=== PATIENT | female | born 1945 | race Caucasian/White ===

== ENCOUNTER 2018-09-11 09:06 | Inpatient (IN) | payer MEDICARE, OTHER ==
[2018-09-11] MEDS ORDERED: FUROSEMIDE 10 MG/ML 4 ML VIAL IV STA (10:15)
[2018-09-11] MEDS ORDERED: FUROSEMIDE 10 MG/ML 4 ML VIAL ONE (10:50)
[2018-09-11 11:03] LABS: Glucose,Whole Blood 265 mg/dL (75-99)
[2018-09-11] MEDS ORDERED: SODIUM CHLORIDE 0.9% 1,000 ML IV SCH ×4 (11:15→13:00)
[2018-09-11] MEDS ORDERED: CLINDAMYCIN 900 MG in DEXTROSE 5% IN WATER 50 ML IVPB ONE ×4 (11:15→12:58)
[2018-09-11] MEDS ORDERED: CLINDAMYCIN 600 MG in SODIUM CHLORIDE 0.9% IRRIGATIO 250 ML IRRIGATION ONE (11:15)
[2018-09-11] MEDS ORDERED: ACETAMINOPHEN TAB 325 MG TAB PO PRN (15:18)
[2018-09-11] MEDS ORDERED: ACETAMINOPHEN TAB 325 MG TAB ONE (15:23)
[2018-09-11] MEDS: IPRATROPIUM 0.5 MG/2.5 ML NEBU INHALATION SCH ×2 (16:55→20:19)
[2018-09-11] MEDS ORDERED: INSULIN ASPART 100 UNIT/ML 1 ML 10 ML VIAL SQ SCH (17:30)
[2018-09-11 17:40] LABS: Glucose,Whole Blood 382 mg/dL (75-99)
[2018-09-11 18:32] VITALS: BMI 53.4
[2018-09-11] MEDS ORDERED: FUROSEMIDE 40 MG TAB PO STA (19:02)
[2018-09-11] MEDS: ATORVASTATIN 10 MG TAB PO SCH (19:57)
[2018-09-11] MEDS: METOPROLOL TARTRATE 50 MG TAB PO SCH (19:57)
[2018-09-11] MEDS: PREGABALIN 75 MG CAP PO SCH (19:57)
[2018-09-11] MEDS: HEPARIN SODIUM,PORCINE 5,000 UNIT/ML 1 ML VIAL SQ SCH (19:57)
[2018-09-11] MEDS: FAMOTIDINE 20 MG TAB PO SCH (19:57)
[2018-09-11] MEDS: MONTELUKAST 10 MG TAB PO SCH (19:57)
[2018-09-11] MEDS ORDERED: SODIUM CHLORIDE 0.9% 500 ML 500 ML IV SCH (20:00)
[2018-09-11 21:01] LABS: Glucose,Whole Blood 300 mg/dL (75-99)
[2018-09-11] MEDS: INSULIN ASPART 100 UNIT/ML 1 ML 10 ML VIAL SQ SCH (21:28)
[2018-09-12] MEDS ORDERED: FUROSEMIDE 10 MG/ML 4 ML VIAL IV STA (00:04)
--- NOTE | 2018-09-12 00:24 | XR ---
EXAMINATION TYPE: XR chest 1V portable DATE OF EXAM: 09/12/2018 COMPARISON: 03/04/2012 HISTORY: Difficulty breathing TECHNIQUE: Single frontal view of the chest is obtained. FINDINGS: There is no heart failure. There is possible infiltrate in the right lower lobe seen over the right cardiac border. There are chest leads. There are sternal wires. The bony thorax is intact. IMPRESSION: No heart failure. Possible right lower lobe infiltrate.
[2018-09-12 05:51] LABS: Glucose,Whole Blood 109 mg/dL (75-99)
[2018-09-12] MEDS: INSULIN ASPART 100 UNIT/ML 1 ML 10 ML VIAL SQ SCH ×4 (06:08→21:18)
[2018-09-12 07:03] LABS: Basophils % (A) 0 %; Eosinophils # (A) 0.1 k/uL (0-0.7); Eosinophils % (A) 1 %; HCT 35.1 % (34.0-46.0); HGB 11.4 gm/dL (11.4-16.0); Lymphocytes # (A) 1.2 k/uL (1.0-4.8); Lymphocytes % (A) 11 %; MCH 30.3 pg (25.0-35.0); MCHC 32.6 g/dL (31.0-37.0); Mean Platelet Volume 7.4; Monocytes # (A) 0.8 k/uL (0-1.0); Monocytes % (A) 6 %; Neutrophils # (A) 9.4 k/uL (1.3-7.7); Neutrophils % (A) 80 %; Platelet Count 177 k/uL (150-450); RBC 3.78 m/uL (3.80-5.40); RDW 14.6 % (11.5-15.5); WBC 11.8 k/uL (3.8-10.6)
[2018-09-12 07:18] LABS: Calcium 8.7 mg/dL (8.4-10.2); Potassium 4.2 mmol/L (3.5-5.1)
[2018-09-12] MEDS ORDERED: CIPROFLOXACIN HCL 250 MG TAB PO STA (08:16)
[2018-09-12] MEDS: IPRATROPIUM 0.5 MG/2.5 ML NEBU INHALATION SCH ×2 (08:21→20:09)
[2018-09-12] MEDS ORDERED: FUROSEMIDE 40 MG TAB PO SCH (09:00)
[2018-09-12] MEDS ORDERED: FUROSEMIDE 20 MG TAB PO SCH (09:00)
[2018-09-12] MEDS: HEPARIN SODIUM,PORCINE 5,000 UNIT/ML 1 ML VIAL SQ SCH ×2 (09:18→20:55)
[2018-09-12] MEDS: LEVOTHYROXINE 125 MCG TAB PO SCH (09:23)
[2018-09-12] MEDS: PREGABALIN 75 MG CAP PO SCH ×2 (09:24→20:56)
[2018-09-12] MEDS: FAMOTIDINE 20 MG TAB PO SCH (09:24)
[2018-09-12] MEDS: METOPROLOL TARTRATE 50 MG TAB PO SCH ×2 (09:24→23:41)
[2018-09-12] MEDS: buPROPion 75 MG TAB PO SCH (09:29)
[2018-09-12] MEDS: FUROSEMIDE 10 MG/ML 4 ML VIAL IV SCH ×2 (09:32→20:55)
[2018-09-12 12:09] LABS: Glucose,Whole Blood 171 mg/dL (75-99)
--- NOTE | 2018-09-12 14:16 | P.HPIM ---
History of Present Illness Niesha Gonzalez a 72 y.o.femalewith a known history of Coronary artery disease status post CABG and valve repair, asthma/COPD, hypothyroidism, history of CVA/TIA, obstructive sleep apnea on CPAP and morbid obesity came to ER with the complaints of generalized weakness and dizziness. Patient was also having shortness of breath the past 2-3 days. Patient was found to have bradycardia and is currently beta chun dose is on hold. Cardio was consulted. TSH level is within normal limits. adult services librarian recommended to transfer pt to [facility] for permanent pacemaker placement . Review of Systems CONSTITUTIONAL: No fever, no malaise, no fatigue. HEENT: No recent visual problems or hearing problems. Denied any sore throat. CARDIOVASCULAR: No orthopnea, PND, no palpitations, no syncope. PULMONARY: No shortness of breath, no cough, no hemoptysis. GASTROINTESTINAL: No diarrhea, no nausea, no vomiting, no abdominal pain. Normoactive bowel sounds. NEUROLOGICAL: No headaches, no weakness, no numbness. HEMATOLOGICAL: Denies any bleeding or petechiae. GENITOURINARY: Denies any burning micturition, frequency, or urgency. MUSCULOSKELETAL/RHEUMATOLOGICAL: Denies any joint pain, swelling, or any muscle pain. ENDOCRINE: Denies any polyuria or polydipsia. Past Medical History Past Medical History: Asthma, Coronary Artery Disease (CAD), COPD, Diabetes Mellitus, Hyperlipidemia, Renal Disease, Sleep Apnea/CPAP/BIPAP, Thyroid Disorder Additional Past Medical History / Comment(s): home O2 at 2L, parkinsons, thrombocytopenia, third degree heart block, cardiogenic shock, syncope History of Any Multi-Drug Resistant Organisms: None Reported Past Surgical History: Cholecystectomy, Coronary Bypass/CABG, Hysterectomy, Joint Replacement Additional Past Surgical History / Comment(s): bilateral knee Past Anesthesia/Blood Transfusion Reactions: No Reported Reaction Past Psychological History: Depression Smoking Status: Never smoker Past Drug Use History: None Reported - Past Family History Mother History Unknown: Yes Father History Unknown: Yes Medications and Allergies Home Medications Medication Instructions Recorded Confirmed Type Budesonide [Pulmicort] 0.5 mg INHALATION RT-BID 09/11/18 09/11/18 History Dulaglutide [Trulicity] 0.75 mg SQ TH 09/11/18 09/11/18 History Ergocalciferol (Vitamin D2) 50,000 unit PO MURRAY 09/11/18 09/11/18 History [Vitamin D2] Furosemide [Lasix] 20 mg PO DAILY 09/11/18 09/11/18 History HYDROcodone/APAP 5-325MG [[place] 1 tab PO Q6HR PRN 09/11/18 09/11/18 History 5-325] Humulin R U-500 Vial 0.01 units SQ-PUMP CONTINUOUS 09/11/18 09/11/18 History Ipratropium-Albuterol Nebulize 3 ml INHALATION RT-BID 09/11/18 09/11/18 History [Duoneb 0.5 mg-3 mg/3 ml Soln] Levothyroxine Sodium [Synthroid] 125 mcg PO MOTUWETHFRSA 09/11/18 09/11/18 History Lovastatin [Mevacor] 40 mg PO HS 09/11/18 09/11/18 History Metoprolol Tartrate [Lopressor] 50 mg PO BID 09/11/18 09/11/18 History Montelukast [Singulair] 10 mg PO HS 09/11/18 09/11/18 History Multivitamins, Thera [Multivitamin 1 tab PO DAILY 09/11/18 09/11/18 History (formulary)] Pregabalin [Lyrica] 100 mg PO BID 09/11/18 09/11/18 History Xolair (Unknown Dose) 1 dose SQ Q14D 09/11/18 09/11/18 History buPROPion [Wellbutrin] 75 mg PO DAILY 09/11/18 09/11/18 History Allergies Allergy/AdvReac Type Severity Reaction Status Date / Time codeine Allergy Unknown Verified 09/11/18 11:04 Penicillins Allergy Unknown Verified 09/11/18 11:04 Physical Exam Vitals: Vital Signs Temp Pulse Pulse Resp BP Pulse Ox 09/12/18 08:33 80 09/12/18 08:21 82 09/12/18 08:05 96.9 F L 82 16 130/91 96 09/12/18 04:00 97.5 F L 85 18 147/68 93 L 09/12/18 02:29 17 09/11/18 23:24 50 L 17 101/65 95 09/11/18 20:29 57 L 09/11/18 20:21 57 L 09/11/18 20:00 52 L 18 09/11/18 19:54 98 F 52 L 18 105/61 99 09/11/18 17:30 97.6 F 52 L 20 133/56 96 09/11/18 17:05 56 L 09/11/18 16:58 58 L 09/11/18 16:33 50 L 20 97 Intake and Output 09/11/18 09/12/18 09/12/18 22:59 06:59 14:59 Intake Total 240 0 Output Total 200 250 400 Balance 40 -250 -400 Intake: Oral 240 0 Output: Urine 200 250 400 Other: Voiding Method Bedside Commode Bedside Commode Bedside Commode Weight 124 kg 125.5 kg GENERAL: The patient is alert and oriented x3, not in any acute distress. Well developed, well nourished. HEENT: Pupils are round and equally reacting to light. EOMI. No scleral icterus. No conjunctival pallor. Normocephalic, atraumatic. No pharyngeal erythema. No thyromegaly. CARDIOVASCULAR: S1 and S2 present. No murmurs, rubs, or gallops. PULMONARY: Chest is clear to auscultation, no wheezing or crackles. ABDOMEN: Soft, nontender, nondistended, normoactive bowel sounds. No palpable organomegaly. MUSCULOSKELETAL: No joint swelling or deformity. EXTREMITIES: No cyanosis, clubbing, or pedal edema. NEUROLOGICAL: Gross neurological examination did not reveal any focal deficits. SKIN: No rashes. Results CBC & Chem 7: 09/12/18 06:42 09/12/18 06:42 Labs: Abnormal Lab Results - Last 24 Hours (Table) 09/11/18 09/11/18 09/12/18 Range/Units 17:37 20:59 05:49 WBC (3.8-10.6) k/uL RBC (3.80-5.40) m/uL Neutrophils # (1.3-7.7) k/uL Carbon Dioxide (22-30) mmol/L BUN (7-17) mg/dL Glucose (74-99) mg/dL POC Glucose (mg/dL) 382 H 300 H 109 H (75-99) mg/dL 09/12/18 09/12/18 09/12/18 Range/Units 06:42 06:42 12:05 WBC 11.8 H (3.8-10.6) k/uL RBC 3.78 L (3.80-5.40) m/uL Neutrophils # 9.4 H (1.3-7.7) k/uL Carbon Dioxide 35 H (22-30) mmol/L BUN 40 H (7-17) mg/dL Glucose 105 H (74-99) mg/dL POC Glucose (mg/dL) 171 H (75-99) mg/dL Thrombosis Risk Factor Assmnt - Choose All That Apply Each Factor Represents 1 point: Abnormal pulmonary function (COPD), Heart failure (<1month) Each Risk Factor Represents 2 Points: Age 61-74 years Thrombosis Risk Factor Assessment Total Risk Factor Score: 4 Thrombosis Risk Factor Assessment Level: Moderate Risk Assessment and Plan Assessment: The cardia, evaluated by cardiology. Planning for pacemaker. Dizziness and presyncope, secondary to above Generalized weakness, mostly secondary to above Hyperglycemia with uncontrolled diabetes type 2 History of coronary artery disease status post CABG and valve replacement Obstructive sleep apnea on CPAP at home Morbid obesity COPD/asthma History of CVA/TIA acute kidney injury most likely prerenal Hyperlipidemia Hypothyroidism Parkinsonism Hypoalbuminemia 2.9 Plan: This is a pleasant 72 years old female who presents because of symptomatic bradycardia and junctional rhythm. Evaluated by cardiology. Patient planned to go for pacemaker tomorrow. Labs and medication were reviewed.. Continue same treatment. Continue with symptomatic treatment. Resume home medication. Monitor lytes and vitals. DVT and GI prophylaxis. Further recommendations of the clinical course of the patient DVT prophylaxis: Subcutaneous heparin GI Prophylaxis: Pepcid PT/OT: Pending Prognosis is guarded
[2018-09-12 15:09] LABS: Hemoglobin A1C 6.4 % (4.0-6.0)
[2018-09-12] MEDS ORDERED: ROCURONIUM BROMIDE 10 MG/ML 10 ML VIAL IV ONE (16:52)
[2018-09-12] MEDS ORDERED: MIDAZOLAM 2 MG/2 ML VIAL ONE (16:52)
[2018-09-12] MEDS ORDERED: LIDOCAINE 1% INJ 10MG/ML (20 ML MDV) ONE ×2 (16:52→17:03)
[2018-09-12] MEDS ORDERED: fentaNYL (PF) 50 MCG/ML 2 ML AMP ONE (16:52)
[2018-09-12] MEDS ORDERED: PROPOFOL 10 MG/ML 20 ML VIAL IV ONE (16:52)
[2018-09-12] MEDS ORDERED: SODIUM CHLORIDE 0.9% 500 ML 500 ML IV ONE (16:52)
[2018-09-12] MEDS ORDERED: IV FLUID CONTINUATION 450 ML IV ONE (16:52)
[2018-09-12] MEDS ORDERED: ETOMIDATE 2 MG/ML 10 ML VIAL ONE (16:52)
[2018-09-12] MEDS ORDERED: SUCCINYLCHOLINE CHLORIDE VIAL 200 MG/10 ML VIAL IV ONE (16:52)
[2018-09-12] MEDS ORDERED: PHENYLEPHRINE-0.9% NACL SYG 1 MG/10 ML SYRINGE ONE (16:52)
[2018-09-12] MEDS ORDERED: FUROSEMIDE 10 MG/ML 4 ML VIAL ONE (17:03)
[2018-09-12] MEDS ORDERED: FUROSEMIDE 10 MG/ML 4 ML VIAL IV ONE (17:04)
[2018-09-12] MEDS ORDERED: IOPAMIDOL-250 100ML BTL IV ONE (17:24)
[2018-09-12] MEDS ORDERED: LIDOCAINE 1% INJ 10MG/ML (20 ML MDV) SQ ONE ×2 (18:01→18:17)
[2018-09-12] MEDS ORDERED: ACETAMINOPHEN TAB 325 MG TAB PO PRN (19:18)
[2018-09-12] MEDS ORDERED: ACETAMINOPHEN IV (For NPO) 1,000 MG in EMPTY BAG 1 BAG IVPB ONE (19:18)
[2018-09-12] MEDS ORDERED: NALOXONE 0.4 MG/ML 1 ML VIAL IV PRN (19:39)
[2018-09-12] MEDS: PROPOFOL 1,000 MG in EMPTY BAG 1 BAG IV SCH ×2 (20:00→22:51)
[2018-09-12 20:17] LABS: Glucose,Whole Blood 113 mg/dL (75-99)
[2018-09-12 20:31] LABS: ABG Base Excess 15.5 mmol/L; ABG HCO3 37 mmol/L (21-25); ABG Oxygen Saturation 99.4 % (94-97); ABG PCO2 36 mmHg (35-45); ABG PO2 158 mmHg (83-108); ABG TCO2 38 mmol/L (19-24)
[2018-09-12 20:34] LABS: ABG PH 7.62 (7.35-7.45)
--- NOTE | 2018-09-12 20:50 | XR ---
EXAMINATION TYPE: XR chest 1V DATE OF EXAM: 09/12/2018 COMPARISON: Today HISTORY: Respiratory failure TECHNIQUE: Single frontal view of the chest is obtained. FINDINGS: Endotracheal tube is 2.5 cm from the adalid. There is pulmonary vascular congestion. There are sternal wires. There is left axillary pacemaker with the lead tips over the right ventricle. Shad ogastric tube is present. There is some blunting of the left costophrenic angle. There is patchy atel ectasis in the lower lobes. IMPRESSION: Patchy bilateral pulmonary infiltrates and atelectasis. no significant change. Pulmon ely congestion. Heart failure is not excluded.
--- NOTE | 2018-09-12 20:52 | XR ---
EXAMINATION TYPE: XR chest 1V portable DATE OF EXAM: 09/12/2018 COMPARISON: Today HISTORY: Respiratory failure. TECHNIQUE: Single frontal view of the chest is obtained. FINDINGS: There is nasogastric tube that is somewhat obscured by other tubing. Tip is not well ident ified. There is pulmonary congestion. Endotracheal tube is 3 cm from the adalid. There is left-sided axillary pacemaker with the lead tips over the right ventricle. There are infiltrates and atelectasis in the lower lung cross. IMPRESSION: There is a nasogastric tube present and the tip is probably in the stomach. Tip is not w ell seen.
--- NOTE | 2018-09-12 20:54 | XR ---
EXAMINATION TYPE: XR chest 1V portable DATE OF EXAM: 09/12/2018 COMPARISON: Today HISTORY: Check tube placement TECHNIQUE: Single frontal view of the chest is obtained. FINDINGS: Endotracheal tube has tip 3 cm from the adalid. Left axillary pacemaker has lead tips over the right ventricle. There is patchy infiltrate and atelectasis in the lower lung cross. There is p ulmonary vascular congestion. IMPRESSION: Increasing infiltrates and atelectasis in the lower lung cross compared to exam earlier today at 12:11AM. Heart failure is possible.
[2018-09-12] MEDS: ATORVASTATIN 10 MG TAB PO SCH (20:55)
[2018-09-12] MEDS: MONTELUKAST 10 MG TAB PO SCH (20:56)
[2018-09-12] MEDS: CIPROFLOXACIN HCL 250 MG TAB PO SCH (21:02)
--- NOTE | 2018-09-12 22:13 | PCN ---
PROCEDURE NOTE Niesha Harris was admitted to [facility]. She was noted to have serious severe bradycardia with intermittent heart block with AV dissociation (third- degree heart block). She had been previously scheduled for a procedure on September 06 at [facility], but had multiple medical issues that complicated the situation. She was transferred to [facility] for further management. At [facility] she was diuresed and started on IV/po antibiotics. Anesthesia was consulted. A permanent pacemaker was implanted under general anesthesia. IMPRESSION: 1. Complete heart block. 2. Symptomatic bradycardia. 3. Coronary artery disease, status post coronary artery bypass grafting and aortic valve replacement. 4. Morbid obesity. 5. sob at rest, started on IV lasix PROCEDURE: With the patient under general anesthesia, the procedure was performed in the EP lab. The left pectoral area was prepped and draped as per protocol. Lidocaine 1% was used for local anesthesia. A 4 cm incision was made parallel to the deltopectoral groove, about 1.5 cm medial to it. The incision was carried down to the level of the pectoralis muscle. A subfascial pocket was made. Hemostasis was assured. The left axillary vein was accessed, and via appropriately-sized introducer sheaths, 2 leads were positioned the in the right heart. The atrial lead was screwed into the right atrial appendage. This was a [address] [employer] model #2088TC and serial #[id number]. The P waves were 0.7 mV. Pacing impedance 540 ohms. Pacing threshold 0.8 V at 0.5 milliseconds. The RV lead was positioned in the RV apex. This was a [employer] model #[id number], 58 cm in length and serial #[id number]. R-waves were 11 mV. Pacing impedance 641 ohms. Pacing threshold 0.3 V at 0.5 milliseconds. The leads were secured to the underlying pectoralis fascia using 2 non- absorbable sutures. Pocket was irrigated with antibiotic solution. Leads were connected to the generator, [employer] model #[id number], serial #[id number]. Leads and the generator were then placed in the subfascial pocket. he wound was closed in 3 layers and dressed per protocol. The device then programmed to DDD mode at 50 bpm with MVP mode on to minimize RV pacing. The wound was closed in 3 layers and dressed per protocol. RESULT: Successful dual-chamber pacemaker implantation for this lady with third-degree heart block with symptomatic bradycardia despite stopping meds before Aug 2018, normal potassium. Procedure was performed under general anesthesia. She was deemed high risk for conscious sedation. The procedure went well without any acute complications. PLAN: IV antibiotics, chest x-ray, and extubate within the next 12 hours. MMODL / IJN: [id number] / BYRON
[2018-09-12] MEDS: CHLORHEXIDINE GLUCONATE 15 ML CUP MUCOUS MEM SCH (23:41)
[2018-09-13] MEDS: CLINDAMYCIN 900 MG in DEXTROSE 5% IN WATER 50 ML IVPB SCH ×8 (00:55→17:19)
[2018-09-13 01:16] LABS: Appearance,Urine Clear (Clear); Bacteria,Urine Rare /hpf; Bilirubin,Urine Negative (Negative); Blood,Urine Small (Negative); Color,Urine Light Yellow; Glucose,Urine (UA) Negative (Negative); Hyaline Casts,Urine 1 /lpf (0-2); Ketones,Urine Negative (Negative); Leukocyte Esterase,Urine Small (Negative); Mucus,Urine Rare /hpf; Nitrite,Urine Negative (Negative); Protein,Urine Negative (Negative); RBC,Urine 2 /hpf (0-5); Specific Gravity,Urine 1.007 (1.001-1.035); Urobilinogen,Urine <2.0 mg/dL (<2.0)
[2018-09-13] MEDS ORDERED: NOREPINEPHRINE 4 MG in SODIUM CHLORIDE 0.9% 250 ML IV SCH (03:00)
[2018-09-13] MEDS: PROPOFOL 1,000 MG in EMPTY BAG 1 BAG IV SCH ×2 (03:02→07:55)
[2018-09-13 04:23] LABS: Basophils % (A) 0 %; Eosinophils # (A) 0.1 k/uL (0-0.7); Eosinophils % (A) 1 %; HCT 33.3 % (34.0-46.0); HGB 10.8 gm/dL (11.4-16.0); Lymphocytes # (A) 1.4 k/uL (1.0-4.8); Lymphocytes % (A) 15 %; MCHC 32.5 g/dL (31.0-37.0); MCV 92.3 fL (80.0-100.0); Monocytes # (A) 0.9 k/uL (0-1.0); Monocytes % (A) 10 %; Neutrophils # (A) 6.6 k/uL (1.3-7.7); Neutrophils % (A) 71 %; Platelet Count 201 k/uL (150-450); RDW 14.4 % (11.5-15.5); WBC 9.3 k/uL (3.8-10.6)
[2018-09-13 04:31] LABS: Calcium 7.9 mg/dL (8.4-10.2); Magnesium 1.7 mg/dL (1.6-2.3); Phosphorus 3.8 mg/dL (2.5-4.5); Potassium 3.6 mmol/L (3.5-5.1)
[2018-09-13] MEDS ORDERED: Potassium Replacement Protocol 1 EACH MISC MISCELLANE PRN (05:29)
[2018-09-13] MEDS ORDERED: Magnesium Replacement Protocol 1 EACH MISC MISCELLANE PRN (05:29)
[2018-09-13] MEDS: MAGNESIUM SULFATE-D5W PMX 1 GM in DEXTROSE/WATER 1 100ML.BAG IVPB SCH ×2 (05:47→06:34)
[2018-09-13] MEDS: LEVOTHYROXINE 125 MCG TAB PO SCH (05:49)
[2018-09-13] MEDS ORDERED: POTASSIUM BICARBONATE/CIT AC 20 MEQ TABLET.EFF NG-TUBE SCH (06:00)
[2018-09-13] MEDS: INSULIN ASPART 100 UNIT/ML 1 ML 10 ML VIAL SQ SCH ×4 (06:33→21:58)
[2018-09-13 06:34] LABS: Glucose,Whole Blood 210 mg/dL (75-99)
[2018-09-13 07:03] LABS: ABG Base Excess 13.4 mmol/L; ABG HCO3 37 mmol/L (21-25); ABG PCO2 49 mmHg (35-45); ABG PH 7.49 (7.35-7.45); ABG PO2 101 mmHg (83-108); ABG TCO2 38 mmol/L (19-24)
[2018-09-13] MEDS: IPRATROPIUM 0.5 MG/2.5 ML NEBU INHALATION SCH (07:37)
[2018-09-13] MEDS: PANTOPRAZOLE 40 MG/10 ML VIAL IV SCH (07:57)
[2018-09-13] MEDS: buPROPion 75 MG TAB PO SCH (07:57)
[2018-09-13] MEDS: HEPARIN SODIUM,PORCINE 5,000 UNIT/ML 1 ML VIAL SQ SCH ×2 (07:57→21:58)
[2018-09-13] MEDS: FUROSEMIDE 10 MG/ML 4 ML VIAL IV SCH ×2 (07:57→21:58)
[2018-09-13] MEDS: METOPROLOL TARTRATE 50 MG TAB PO SCH ×2 (07:58→21:59)
[2018-09-13] MEDS: CHLORHEXIDINE GLUCONATE 15 ML CUP MUCOUS MEM SCH (07:58)
[2018-09-13] MEDS: PREGABALIN 75 MG CAP PO SCH ×2 (07:58→21:59)
[2018-09-13] MEDS: CIPROFLOXACIN HCL 250 MG TAB PO SCH (07:59)
--- NOTE | 2018-09-13 08:35 | XR ---
EXAMINATION TYPE: XR chest 1V portable DATE OF EXAM: 09/13/2018 COMPARISON: 09/12/2018 INDICATION: Tube placement TECHNIQUE: Single frontal view of the chest is obtained. FINDINGS: The heart size is normal. There may be some cardiac valve calcification present. The pulmonary vasculature is normal. No focal consolidation is evident. Endotracheal tube tip is 1.6 cm above the adalid back slightly. Nasogastric tube transverses the thor ax with the tip out of the [id number] within the left upper quadrant a pacemaker overlies left kun st. Multiple EKG leads overlie the chest. IMPRESSION: 1. No acute pulmonary process. 2. Endotracheal tube tip approximately 1.6 cm above the adalid and can be pulled back slightly.
[2018-09-13 10:38] LABS: ABG Base Excess 15.8 mmol/L; ABG HCO3 39 mmol/L (21-25); ABG Oxygen Saturation 99.8 % (94-97); ABG PCO2 50 mmHg (35-45); ABG PO2 118 mmHg (83-108); ABG TCO2 41 mmol/L (19-24)
[2018-09-13 11:14] LABS: Glucose,Whole Blood 188 mg/dL (75-99)
[2018-09-13 11:42] LABS: ABG Base Excess 14.9 mmol/L; ABG HCO3 39 mmol/L (21-25); ABG Oxygen Saturation 98.3 % (94-97); ABG PCO2 52 mmHg (35-45); ABG PH 7.48 (7.35-7.45); ABG PO2 90 mmHg (83-108); ABG TCO2 40 mmol/L (19-24)
--- NOTE | 2018-09-13 12:12 | P.CNPUL ---
History of Present Illness Consult date: 09/13/18 Requesting physician: Tyler E Sheet Reason for consult: COPD, other (Patient remains on mechanical ventilation post pacemaker implantation.) Chief complaint: Shortness of breath History of present illness: This is a 72-year-old female, recently presented to [facility] with serious severe bradycardia and intermittent heart block with AV dissociation/third-degree AV block. Patient was complaining of shortness of breath, and she was seen by cardiology on consultation. patient is also known to have history of coronary artery disease and previous CABG and previous aortic valve replacement. Considering her severe bradycardia and third-degree AV block, patient was transferred to [facility], underwent dual -chamber pacemaker implantation, however because of her condition and underlying COPD as well as morbid obesity, patient had to be intubated, and the procedure was done while the patient was on mechanical ventilation. Postoperatively, patient could not be weaned and extubated, her chest x-ray showed evidence of pulmonary edema, patient was transferred to the ICU, and I was asked to see her on consultation. She is presently on mechanical ventilation, ventilator settings are tidal volume of 500, assist control rate of 8, 40% FiO2, and PEEP of 5. At night, the patient required norepinephrine because of low blood pressure, however she is presently still on 5 mcg/m of norepinephrine, but she is also on propofol at 50 mcg/kg. Review of Systems ROS unobtainable: due to endotracheal tube Past Medical History Past Medical History: Asthma, Coronary Artery Disease (CAD), COPD, Diabetes Mellitus, Hyperlipidemia, Renal Disease, Sleep Apnea/CPAP/BIPAP, Thyroid Disorder Additional Past Medical History / Comment(s): home O2 at 2L, parkinsons, thrombocytopenia, third degree heart block, cardiogenic shock, syncope History of Any Multi-Drug Resistant Organisms: None Reported Past Surgical History: Cholecystectomy, Coronary Bypass/CABG, Hysterectomy, Joint Replacement Additional Past Surgical History / Comment(s): bilateral knee Past Anesthesia/Blood Transfusion Reactions: No Reported Reaction Past Psychological History: Depression Smoking Status: Never smoker Past Drug Use History: None Reported - Past Family History Mother History Unknown: Yes Father History Unknown: Yes Medications and Allergies Home Medications Medication Instructions Recorded Confirmed Type Budesonide [Pulmicort] 0.5 mg INHALATION RT-BID 09/11/18 09/11/18 History Dulaglutide [Trulicity] 0.75 mg SQ TH 09/11/18 09/11/18 History Ergocalciferol (Vitamin D2) 50,000 unit PO MURRAY 09/11/18 09/11/18 History [Vitamin D2] Furosemide [Lasix] 20 mg PO DAILY 09/11/18 09/11/18 History HYDROcodone/APAP 5-325MG [[place] 1 tab PO Q6HR PRN 09/11/18 09/11/18 History 5-325] Humulin R U-500 Vial 0.01 units SQ-PUMP CONTINUOUS 09/11/18 09/11/18 History Ipratropium-Albuterol Nebulize 3 ml INHALATION RT-BID 09/11/18 09/11/18 History [Duoneb 0.5 mg-3 mg/3 ml Soln] Levothyroxine Sodium [Synthroid] 125 mcg PO MOTUWETHFRSA 09/11/18 09/11/18 History Lovastatin [Mevacor] 40 mg PO HS 09/11/18 09/11/18 History Metoprolol Tartrate [Lopressor] 50 mg PO BID 09/11/18 09/11/18 History Montelukast [Singulair] 10 mg PO HS 09/11/18 09/11/18 History Multivitamins, Thera [Multivitamin 1 tab PO DAILY 09/11/18 09/11/18 History (formulary)] Pregabalin [Lyrica] 100 mg PO BID 09/11/18 09/11/18 History Xolair (Unknown Dose) 1 dose SQ Q14D 09/11/18 09/11/18 History buPROPion [Wellbutrin] 75 mg PO DAILY 09/11/18 09/11/18 History Allergies Allergy/AdvReac Type Severity Reaction Status Date / Time codeine Allergy Unknown Verified 09/11/18 11:04 Penicillins Allergy Unknown Verified 09/11/18 11:04 Physical Exam Vitals: Vital Signs Temp Pulse Resp BP Pulse Ox 09/13/18 11:22 19 09/13/18 11:00 67 19 97 09/13/18 10:00 63 9 L 96 09/13/18 09:00 61 12 97 09/13/18 08:00 98.5 F 69 12 115/41 98 09/13/18 07:52 67 09/13/18 07:41 71 09/13/18 07:00 66 12 96 09/13/18 06:30 71 12 97 09/13/18 06:00 73 12 97 09/13/18 05:30 73 12 99 09/13/18 05:00 73 12 97 09/13/18 04:30 75 12 96 09/13/18 04:00 69 12 97 09/13/18 03:30 71 12 97 09/13/18 03:00 78 12 97 09/13/18 02:30 77 12 96 09/13/18 02:00 79 14 96 09/13/18 01:30 79 12 97 09/13/18 01:00 73 12 97 09/13/18 00:30 71 12 99 09/13/18 00:00 97.8 F 70 12 99 09/12/18 23:30 68 12 98 09/12/18 23:00 67 12 100 09/12/18 22:30 69 13 99 09/12/18 22:00 68 12 99 09/12/18 21:30 66 12 98 09/12/18 21:00 97.6 F 65 12 98 09/12/18 20:30 97.2 F L 65 12 97 09/12/18 20:05 96 09/12/18 20:00 95.3 F L 69 14 100 09/12/18 19:53 66 14 98 Intake and Output 09/12/18 09/13/18 09/13/18 22:59 06:59 14:59 Intake Total 429.640 300.305 372.848 Output Total 750 530 600 Balance -320.360 -229.695 -227.152 Intake: IV 326 130 20 Sodium Chloride 0.9% 500 20 130 20 ml 500 ml @ 20 mls/hr IV .Q24H SELINA Rx#:[id number] Intake, IV Titration 103.640 170.305 292.848 Amount Norepinephrine 4 mg In 59.00 118.751 Sodium Chloride 0.9% 250 ml @ Titrate IV .Q0M SELINA Rx#:[id number] Propofol 1,000 mg In 103.640 111.305 94.097 Empty Bag 1 bag @ Titrate IV .Q0M SELINA Rx#: [id number] Sodium Chloride 0.9% 500 80 ml 500 ml @ 0 mls/hr IV . [facility] Rx#: [id number] Oral 60 Output: Urine 750 530 600 Other: Voiding Method Indwelling Catheter Indwelling Catheter Indwelling Catheter Weight 131.6 kg 131.6 kg ABP, PAP, CO, CI - Last 8 Hours Arterial Blood Pressure 117/41 Arterial Blood Pressure 126/43 Arterial Blood Pressure 102/37 Arterial Blood Pressure 113/39 Arterial Blood Pressure 119/44 Arterial Blood Pressure 122/49 Arterial Blood Pressure 112/40 Arterial Blood Pressure 121/41 Arterial Blood Pressure 112/39 Arterial Blood Pressure 127/48 Physical Exam: Revealed a 72-year-old female, obese, sedated, on mechanical ventilation. Head: Atraumatic, normocephalic, endotracheal tube was noted to be intact. HEENT:[Neck is supple.] [No neck masses.] [No thyromegaly.] [No JVD.] Chest: [Crackles at the bases, no rhonchi and no wheezes..] Cardiac Exam: [Normal S1 and S2, no S3 gallop, no murmur.] Abdomen: [Obese, Soft, nontender, no megaly, no rebound, no guarding, normal bowel sounds.] Extremities: [No clubbing, no edema, no cyanosis.] Neurological Exam: Cannot be assessed, patient is sedated, on mechanical ventilation. Skin: No rashes. Results - Laboratory Findings CBC and BMP: 09/13/18 04:15 09/13/18 11:12 ABG ABG pH 7.48 (7.35-7.45) H 09/13/18 11:38 ABG pCO2 52 mmHg (35-45) H 09/13/18 11:38 ABG pO2 90 mmHg (83-108) 09/13/18 11:38 ABG O2 Saturation 98.3 % (94-97) H 09/13/18 11:38 Abnormal lab findings: Abnormal Labs 09/11/18 09/11/18 09/11/18 10:51 17:37 20:59 WBC RBC Hgb Hct Neutrophils # ABG pH ABG pCO2 ABG pO2 ABG HCO3 ABG Total CO2 ABG O2 Saturation Carbon Dioxide BUN Creatinine Glucose POC Glucose (mg/dL) 265 H 382 H 300 H Hemoglobin A1c Calcium Urine Blood Ur Leukocyte Esterase Urine WBC Urine Bacteria Urine Mucus 09/12/18 09/12/18 09/12/18 05:49 06:42 06:42 WBC 11.8 H RBC 3.78 L Hgb Hct Neutrophils # 9.4 H ABG pH ABG pCO2 ABG pO2 ABG HCO3 ABG Total CO2 ABG O2 Saturation Carbon Dioxide BUN Creatinine Glucose POC Glucose (mg/dL) 109 H Hemoglobin A1c 6.4 H Calcium Urine Blood Ur Leukocyte Esterase Urine WBC Urine Bacteria Urine Mucus 09/12/18 09/12/18 09/12/18 06:42 12:05 19:50 WBC RBC Hgb Hct Neutrophils # ABG pH ABG pCO2 ABG pO2 ABG HCO3 ABG Total CO2 ABG O2 Saturation Carbon Dioxide 35 H BUN 40 H Creatinine Glucose 105 H POC Glucose (mg/dL) 171 H 113 H Hemoglobin A1c Calcium Urine Blood Ur Leukocyte Esterase Urine WBC Urine Bacteria Urine Mucus 09/12/18 09/12/18 09/13/18 20:28 22:36 04:15 WBC RBC 3.60 L Hgb 10.8 L Hct 33.3 L Neutrophils # ABG pH 7.62 H* ABG pCO2 ABG pO2 158 H ABG HCO3 37 H ABG Total CO2 38 H ABG O2 Saturation 99.4 H Carbon Dioxide BUN Creatinine Glucose POC Glucose (mg/dL) Hemoglobin A1c Calcium Urine Blood Small H Ur Leukocyte Esterase Small H Urine WBC 14 H Urine Bacteria Rare H Urine Mucus Rare H 09/13/18 09/13/18 09/13/18 04:15 06:30 07:00 WBC RBC Hgb Hct Neutrophils # ABG pH 7.49 H ABG pCO2 49 H ABG pO2 ABG HCO3 37 H ABG Total CO2 38 H ABG O2 Saturation 99.0 H Carbon Dioxide 38 H BUN 34 H Creatinine 1.19 H Glucose 176 H POC Glucose (mg/dL) 210 H Hemoglobin A1c Calcium 7.9 L Urine Blood Ur Leukocyte Esterase Urine WBC Urine Bacteria Urine Mucus 09/13/18 09/13/18 09/13/18 10:33 11:11 11:38 WBC RBC Hgb Hct Neutrophils # ABG pH 7.50 H 7.48 H ABG pCO2 50 H 52 H ABG pO2 118 H ABG HCO3 39 H 39 H ABG Total CO2 41 H 40 H ABG O2 Saturation 99.8 H 98.3 H Carbon Dioxide BUN Creatinine Glucose POC Glucose (mg/dL) 188 H Hemoglobin A1c Calcium Urine Blood Ur Leukocyte Esterase Urine WBC Urine Bacteria Urine Mucus - Diagnostic Findings Chest x-ray: image reviewed (Chest x-ray this morning showed significant improvement compared to the chest x-ray yesterday, endotracheal tube was noted to be a bit low close to the adalid, and this was moved upwards by 1.0 cm.) Assessment and Plan Assessment: Impression: 1 postoperative hypoxic and hypercapnic respiratory failure secondary to COPD and obesity, as well as pulmonary edema secondary to systolic dysfunction. 2 status post pacemaker implantation for third-degree AV block. 3 symptomatic bradycardia and third-degree AV block upon presentation 4 suspect underlying severe COPD 5 type 2 diabetes 6 history of obstructive sleep apnea on CPAP at home 7 acute kidney injury, possible ATN. 8 hypothyroidism 9 Parkinson's disease 10 hypoalbuminemia. 11 history of coronary artery disease with previous CABG and aortic valve replacement. Recommendation: Reviewed chest x-ray, reviewed all labs, reviewed the ventilator settings adjusted the endotracheal tube, adjusted the ventilator settings, recommended stopping propofol, and once the propofol is off and the patient is awake, patient will be placed on a pressure support and CPAP trial, and if tolerated, then we could proceed to weaning and extubation. Patient is not quite ready at this point for weaning, but once the propofol will resolve, and assuming her blood pressure remains stable we will address weaning and extubation. Presently the patient remains on norepinephrine for borderline blood pressure, this is most likely related to LV dysfunction. We'll continue to follow. Time with Patient: Greater than 30
--- NOTE | 2018-09-13 13:08 | P.PN ---
Subjective Patient is doing well. Her blood pressure at night was low while on sedatives but this is improved now. This morning she is intubated but she is awake and she recognizes me and nods her head. A permanent pacemaker was interrogated and is functioning normally. I reprogrammed the AV delay to minimize ventricular pacing Breath sounds are reduced bilaterally bilateral rhonchorous breath sounds Heart sounds. Soft History the site is healed well there is minimal soakage no hematoma Impression Intermittent complete heart block status post permanent pacing yesterday which is successful in the pacemaker is functioning normally. I have programmed the pacemaker to minimize ventricular pacing From a COPD standpoint she is been very rhonchorous and yesterday started on IV Lasix 80 mg twice daily as well as oral ciprofloxacin and I spoke to Dr. ISAEL Bronson. He who is her primary wedding cake designer and I would leave the pulmonary management to him post extubation. A consult was placed for Dr. Bronson IV antibiotics to continue, clindamycin 4 doses post implant Objective - Vital Signs Vital signs: Vital Signs Temp 98.5 F 09/13/18 08:00 Pulse 67 09/13/18 11:00 Resp 19 09/13/18 11:22 BP 115/41 09/13/18 08:00 Pulse Ox 97 09/13/18 11:00 Intake & Output 09/12/18 09/13/18 09/13/18 18:59 06:59 18:59 Intake Total 306 423.945 372.848 Output Total 1300 1280 600 Balance -994 -856.055 -227.152 Weight 131.6 kg 131.6 kg Intake: IV 306 150 20 Sodium Chloride 0.9% 500 150 20 ml 500 ml @ 20 mls/hr IV .Q24H [facility] Rx#:[id number] Intake, IV Titration 273.945 292.848 Amount Norepinephrine 4 mg In 59.00 118.751 Sodium Chloride 0.9% 250 ml @ Titrate IV .Q0M [facility] Rx#:[id number] Propofol 1,000 mg In 214.945 94.097 Empty Bag 1 bag @ Titrate IV .Q0M [facility] Rx#: [id number] Sodium Chloride 0.9% 500 80 ml 500 ml @ 0 mls/hr IV . [facility] Rx#: [id number] Oral 0 60 Output: Urine 1300 1280 600 Other: Voiding Method Bedside Commode Indwelling Catheter Indwelling Catheter # Bowel Movements 1 ABP, PAP, CO, CI - Last Documented Arterial Blood Pressure 117/41 - Labs CBC & Chem 7: 09/13/18 04:15 09/13/18 11:12 Labs: Abnormal Lab Results - Last 24 Hours (Table) 09/12/18 09/12/18 09/12/18 Range/Units 06:42 19:50 20:28 RBC (3.80-5.40) m/uL Hgb (11.4-16.0) gm/dL Hct (34.0-46.0) % ABG pH 7.62 H* (7.35-7.45) ABG pCO2 (35-45) mmHg ABG pO2 158 H (83-108) mmHg ABG HCO3 37 H (21-25) mmol/L ABG Total CO2 38 H (19-24) mmol/L ABG O2 Saturation 99.4 H (94-97) % Carbon Dioxide (22-30) mmol/L BUN (7-17) mg/dL Creatinine (0.52-1.04) mg/dL Glucose (74-99) mg/dL POC Glucose (mg/dL) 113 H (75-99) mg/dL Hemoglobin A1c 6.4 H (4.0-6.0) % Calcium (8.4-10.2) mg/dL Urine Blood (Negative) Ur Leukocyte Esterase (Negative) Urine WBC (0-5) /hpf Urine Bacteria (None) /hpf Urine Mucus (None) /hpf 09/12/18 09/13/18 09/13/18 Range/Units 22:36 04:15 04:15 RBC 3.60 L (3.80-5.40) m/uL Hgb 10.8 L (11.4-16.0) gm/dL Hct 33.3 L (34.0-46.0) % ABG pH (7.35-7.45) ABG pCO2 (35-45) mmHg ABG pO2 (83-108) mmHg ABG HCO3 (21-25) mmol/L ABG Total CO2 (19-24) mmol/L ABG O2 Saturation (94-97) % Carbon Dioxide 38 H (22-30) mmol/L BUN 34 H (7-17) mg/dL Creatinine 1.19 H (0.52-1.04) mg/dL Glucose 176 H (74-99) mg/dL POC Glucose (mg/dL) (75-99) mg/dL Hemoglobin A1c (4.0-6.0) % Calcium 7.9 L (8.4-10.2) mg/dL Urine Blood Small H (Negative) Ur Leukocyte Esterase Small H (Negative) Urine WBC 14 H (0-5) /hpf Urine Bacteria Rare H (None) /hpf Urine Mucus Rare H (None) /hpf 09/13/18 09/13/18 09/13/18 Range/Units 06:30 07:00 10:33 RBC (3.80-5.40) m/uL Hgb (11.4-16.0) gm/dL Hct (34.0-46.0) % ABG pH 7.49 H 7.50 H (7.35-7.45) ABG pCO2 49 H 50 H (35-45) mmHg ABG pO2 118 H (83-108) mmHg ABG HCO3 37 H 39 H (21-25) mmol/L ABG Total CO2 38 H 41 H (19-24) mmol/L ABG O2 Saturation 99.0 H 99.8 H (94-97) % Carbon Dioxide (22-30) mmol/L BUN (7-17) mg/dL Creatinine (0.52-1.04) mg/dL Glucose (74-99) mg/dL POC Glucose (mg/dL) 210 H (75-99) mg/dL Hemoglobin A1c (4.0-6.0) % Calcium (8.4-10.2) mg/dL Urine Blood (Negative) Ur Leukocyte Esterase (Negative) Urine WBC (0-5) /hpf Urine Bacteria (None) /hpf Urine Mucus (None) /hpf 09/13/18 09/13/18 Range/Units 11:11 11:38 RBC (3.80-5.40) m/uL Hgb (11.4-16.0) gm/dL Hct (34.0-46.0) % ABG pH 7.48 H (7.35-7.45) ABG pCO2 52 H (35-45) mmHg ABG pO2 (83-108) mmHg ABG HCO3 39 H (21-25) mmol/L ABG Total CO2 40 H (19-24) mmol/L ABG O2 Saturation 98.3 H (94-97) % Carbon Dioxide (22-30) mmol/L BUN (7-17) mg/dL Creatinine (0.52-1.04) mg/dL Glucose (74-99) mg/dL POC Glucose (mg/dL) 188 H (75-99) mg/dL Hemoglobin A1c (4.0-6.0) % Calcium (8.4-10.2) mg/dL Urine Blood (Negative) Ur Leukocyte Esterase (Negative) Urine WBC (0-5) /hpf Urine Bacteria (None) /hpf Urine Mucus (None) /hpf Microbiology - Last 24 Hours (Table) 09/12/18 22:36 Urine Culture - Preliminary Urine,Catheterized
--- NOTE | 2018-09-13 13:35 | P.CNPUL ---
History of Present Illness Consult date: 09/13/18 Requesting physician: Jere Zhou Reason for consult: other (pulmonary management) Chief complaint: shortness of breath History of present illness: This is a 72-year-old female being seen examined and evaluated today for pulmonary consultation. This patient is well-known to our services. The patient came in to [facility] with significant bradycardia and was noted to have a third-degree A-V heart block. She also is having some significant shortness of breath. She was seen by a cloak room attendant and they recommend transferred to [facility] to undergo a dual-chamber pacemaker insertion. The patient is morbidly obese and has been underlying severe COPD she did require intubation with mechanical ventilation for the procedure and was on ventilatory support overnight due to not being able to wean off in the postoperative period. She was transferred to the intensive care unit. Earlier this morning the patient was able to adequately maintain CPAP and weaning parameters and was extubated. While she was intubated the patient did require some pressor support, low dose which is currently being weaned off. She does have a significant past medical history of a previous CABG and aortic valve replacement, diabetes mellitus, obstructive sleep apnea for which she uses CPAP , patient does utilize 2 L of supplemental oxygen at home. Upon examination the patient is post extubation and is on 2 L of supplemental oxygen via nasal cannula. She is on 3 mics of Levophed. Vital signs are stable at this time. She is afebrile. She is able to talk. She follows commands. Pacemaker insertion site dressing is clean dry and intact with some shadowing. All labs and reports have been reviewed. Review of Systems 14 point review of systems was completed and is negative unless noted above in the HPI Past Medical History Past Medical History: Asthma, Coronary Artery Disease (CAD), COPD, Diabetes Mellitus, Hyperlipidemia, Renal Disease, Sleep Apnea/CPAP/BIPAP, Thyroid Disorder Additional Past Medical History / Comment(s): home O2 at 2L, parkinsons, thrombocytopenia, third degree heart block, cardiogenic shock, syncope History of Any Multi-Drug Resistant Organisms: None Reported Past Surgical History: Cholecystectomy, Coronary Bypass/CABG, Hysterectomy, Joint Replacement Additional Past Surgical History / Comment(s): bilateral knee Past Anesthesia/Blood Transfusion Reactions: No Reported Reaction Past Psychological History: Depression Smoking Status: Never smoker Past Drug Use History: None Reported - Past Family History Mother History Unknown: Yes Father History Unknown: Yes Medications and Allergies Home Medications Medication Instructions Recorded Confirmed Type Budesonide [Pulmicort] 0.5 mg INHALATION RT-BID 09/11/18 09/11/18 History Dulaglutide [Trulicity] 0.75 mg SQ TH 09/11/18 09/11/18 History Ergocalciferol (Vitamin D2) 50,000 unit PO MURRAY 09/11/18 09/11/18 History [Vitamin D2] Furosemide [Lasix] 20 mg PO DAILY 09/11/18 09/11/18 History HYDROcodone/APAP 5-325MG [[place] 1 tab PO Q6HR PRN 09/11/18 09/11/18 History 5-325] Humulin R U-500 Vial 0.01 units SQ-PUMP CONTINUOUS 09/11/18 09/11/18 History Ipratropium-Albuterol Nebulize 3 ml INHALATION RT-BID 09/11/18 09/11/18 History [Duoneb 0.5 mg-3 mg/3 ml Soln] Levothyroxine Sodium [Synthroid] 125 mcg PO MOTUWETHFRSA 09/11/18 09/11/18 History Lovastatin [Mevacor] 40 mg PO HS 09/11/18 09/11/18 History Metoprolol Tartrate [Lopressor] 50 mg PO BID 09/11/18 09/11/18 History Montelukast [Singulair] 10 mg PO HS 09/11/18 09/11/18 History Multivitamins, Thera [Multivitamin 1 tab PO DAILY 09/11/18 09/11/18 History (formulary)] Pregabalin [Lyrica] 100 mg PO BID 09/11/18 09/11/18 History Xolair (Unknown Dose) 1 dose SQ Q14D 09/11/18 09/11/18 History buPROPion [Wellbutrin] 75 mg PO DAILY 09/11/18 09/11/18 History Allergies Allergy/AdvReac Type Severity Reaction Status Date / Time codeine Allergy Unknown Verified 09/11/18 11:04 Penicillins Allergy Unknown Verified 09/11/18 11:04 Physical Exam Vitals: Vital Signs Temp Pulse Resp BP Pulse Ox 09/13/18 11:22 19 09/13/18 11:00 67 19 97 09/13/18 10:00 63 9 L 96 09/13/18 09:00 61 12 97 09/13/18 08:00 98.5 F 69 12 115/41 98 09/13/18 07:52 67 09/13/18 07:41 71 09/13/18 07:00 66 12 96 09/13/18 06:30 71 12 97 09/13/18 06:00 73 12 97 09/13/18 05:30 73 12 99 09/13/18 05:00 73 12 97 09/13/18 04:30 75 12 96 09/13/18 04:00 69 12 97 09/13/18 03:30 71 12 97 09/13/18 03:00 78 12 97 09/13/18 02:30 77 12 96 09/13/18 02:00 79 14 96 09/13/18 01:30 79 12 97 09/13/18 01:00 73 12 97 09/13/18 00:30 71 12 99 09/13/18 00:00 97.8 F 70 12 99 09/12/18 23:30 68 12 98 09/12/18 23:00 67 12 100 09/12/18 22:30 69 13 99 09/12/18 22:00 68 12 99 09/12/18 21:30 66 12 98 09/12/18 21:00 97.6 F 65 12 98 09/12/18 20:30 97.2 F L 65 12 97 09/12/18 20:05 96 09/12/18 20:00 95.3 F L 69 14 100 09/12/18 19:53 66 14 98 Intake and Output 09/12/18 09/13/18 09/13/18 22:59 06:59 14:59 Intake Total 429.640 300.305 372.848 Output Total 750 530 600 Balance -320.360 -229.695 -227.152 Intake: IV 326 130 20 Sodium Chloride 0.9% 500 20 130 20 ml 500 ml @ 20 mls/hr IV .Q24H [facility] Rx#:[id number] Intake, IV Titration 103.640 170.305 292.848 Amount Norepinephrine 4 mg In 59.00 118.751 Sodium Chloride 0.9% 250 ml @ Titrate IV .Q0M [facility] Rx#:[id number] Propofol 1,000 mg In 103.640 111.305 94.097 Empty Bag 1 bag @ Titrate IV .Q0M [facility] Rx#: [id number] Sodium Chloride 0.9% 500 80 ml 500 ml @ 0 mls/hr IV . [facility] Rx#: [id number] Oral 60 Output: Urine 750 530 600 Other: Voiding Method Indwelling Catheter Indwelling Catheter Indwelling Catheter Weight 131.6 kg 131.6 kg ABP, PAP, CO, CI - Last 8 Hours Arterial Blood Pressure 117/41 Arterial Blood Pressure 126/43 Arterial Blood Pressure 102/37 Arterial Blood Pressure 113/39 Arterial Blood Pressure 119/44 Arterial Blood Pressure 122/49 Arterial Blood Pressure 112/40 Arterial Blood Pressure 121/41 GENERAL EXAM: Alert, obese, comfortable in no apparent distress. HEAD: Normocephalic. EYES: Normal reaction of pupils, equal size. NOSE: Clear with pink turbinates. THROAT: No erythema or exudates. NECK: No masses, no JVD. CHEST: No chest wall deformity. Pacemaker insertion site clean dry and intact with small amount of shadowing LUNGS: Equal air entry with some faint rhonchi. CVS: S1 and S2 normal with no audible mumurs, regular rhythm. ABDOMEN: No hepatosplenomegaly, normal bowel sounds, no guarding or rigidity. EXTREMITIES: No edema noted, pedal pulses palpable. CENTRAL NERVOUS SYSTEM: No focal deficits, tone is normal in all 4 extremities. Results - Laboratory Findings CBC and BMP: 09/13/18 04:15 09/13/18 11:12 ABG ABG pH 7.48 (7.35-7.45) H 09/13/18 11:38 ABG pCO2 52 mmHg (35-45) H 09/13/18 11:38 ABG pO2 90 mmHg (83-108) 09/13/18 11:38 ABG O2 Saturation 98.3 % (94-97) H 09/13/18 11:38 Abnormal lab findings: Abnormal Labs 09/11/18 09/11/18 09/11/18 10:51 17:37 20:59 WBC RBC Hgb Hct Neutrophils # ABG pH ABG pCO2 ABG pO2 ABG HCO3 ABG Total CO2 ABG O2 Saturation Carbon Dioxide BUN Creatinine Glucose POC Glucose (mg/dL) 265 H 382 H 300 H Hemoglobin A1c Calcium Urine Blood Ur Leukocyte Esterase Urine WBC Urine Bacteria Urine Mucus 0109/12/18 09/12/18 05:49 06:42 06:42 WBC 11.8 H RBC 3.78 L Hgb Hct Neutrophils # 9.4 H ABG pH ABG pCO2 ABG pO2 ABG HCO3 ABG Total CO2 ABG O2 Saturation Carbon Dioxide BUN Creatinine Glucose POC Glucose (mg/dL) 109 H Hemoglobin A1c 6.4 H Calcium Urine Blood Ur Leukocyte Esterase Urine WBC Urine Bacteria Urine Mucus 09/12/18 09/12/18 09/12/18 06:42 12:05 19:50 WBC RBC Hgb Hct Neutrophils # ABG pH ABG pCO2 ABG pO2 ABG HCO3 ABG Total CO2 ABG O2 Saturation Carbon Dioxide 35 H BUN 40 H Creatinine Glucose 105 H POC Glucose (mg/dL) 171 H 113 H Hemoglobin A1c Calcium Urine Blood Ur Leukocyte Esterase Urine WBC Urine Bacteria Urine Mucus 09/12/18 09/12/18 09/13/18 20:28 22:36 04:15 WBC RBC 3.60 L Hgb 10.8 L Hct 33.3 L Neutrophils # ABG pH 7.62 H* ABG pCO2 ABG pO2 158 H ABG HCO3 37 H ABG Total CO2 38 H ABG O2 Saturation 99.4 H Carbon Dioxide BUN Creatinine Glucose POC Glucose (mg/dL) Hemoglobin A1c Calcium Urine Blood Small H Ur Leukocyte Esterase Small H Urine WBC 14 H Urine Bacteria Rare H Urine Mucus Rare H 09/13/18 09/13/18 09/13/18 04:15 06:30 07:00 WBC RBC Hgb Hct Neutrophils # ABG pH 7.49 H ABG pCO2 49 H ABG pO2 ABG HCO3 37 H ABG Total CO2 38 H ABG O2 Saturation 99.0 H Carbon Dioxide 38 H BUN 34 H Creatinine 1.19 H Glucose 176 H POC Glucose (mg/dL) 210 H Hemoglobin A1c Calcium 7.9 L Urine Blood Ur Leukocyte Esterase Urine WBC Urine Bacteria Urine Mucus 09/13/18 09/13/18 09/13/18 10:33 11:11 11:38 WBC RBC Hgb Hct Neutrophils # ABG pH 7.50 H 7.48 H ABG pCO2 50 H 52 H ABG pO2 118 H ABG HCO3 39 H 39 H ABG Total CO2 41 H 40 H ABG O2 Saturation 99.8 H 98.3 H Carbon Dioxide BUN Creatinine Glucose POC Glucose (mg/dL) 188 H Hemoglobin A1c Calcium Urine Blood Ur Leukocyte Esterase Urine WBC Urine Bacteria Urine Mucus - Diagnostic Findings Chest x-ray: report reviewed, image reviewed Assessment and Plan Assessment: Assessment Status post pacemaker insertion for Third-degree heart block Symptomatic bradycardia related to above Severe COPD not acutely exacerbated Obstructive sleep apnea uses home CPAP Acute on chronic hypoxic respiratory failure requiring supplemental oxygen Morbid obesity Diabetes mellitus type 2 History of CAD with previous CABG and aortic valve replacement Plan Medications have been reviewed and will be continued as ordered. Patient is post extubation, appreciate cardiology recommendations Continue weaning down pressor support for hypotension as tolerated Continue with pulmonary hygiene, coughing and deep breathing exercises, and supportive care. Supplemental oxygen to maintain oxygen saturations of 92% or better. Utilize bipap 15/5, at night and PRN while in ICU Home CPAP can be used after patient is downraded from ICU Patient's family to bring in home CPAP machine Cultures are pending Continue nebulizer treatments. Initiate and encourage incentive spirometer GI and DVT prophylaxis. Increase activity as tolerated PT and OT We will continue to monitor labs/results and adjust treatment as necessary. Further recommendations pending. I, the signing physician performed an examination of the patient, discussed and directed their management with the nurse practitioner. I have reviewed the nurse practitioner's note and agree with the documented findings, orders and plan of care. Nurse practitioner acting as a scribe for the signing physician.
[2018-09-13] MEDS: POTASSIUM CHLORIDE 10 MEQ in WATER FOR INJECTION 1 100ML.BAG IVPB SCH ×3 (13:41→15:07)
[2018-09-13] MEDS: HYDROcodone/APAP 5-325MG 1 EACH TAB PO PRN (14:34)
[2018-09-13 17:18] LABS: Glucose,Whole Blood 136 mg/dL (75-99)
--- NOTE | 2018-09-13 20:26 | P.PN ---
Subjective Niesha Gonzalez a 72 y.o.femalewith a known history of Coronary artery disease status post CABG and valve repair, asthma/COPD, hypothyroidism, history of CVA/TIA, obstructive sleep apnea on CPAP and morbid obesity came to ER with the complaints of generalized weakness and dizziness. Patient was also having shortness of breath the past 2-3 days. Patient was found to have bradycardia and is currently beta chun dose is on hold. Cardio was consulted. TSH level is within normal limits. faculty physician recommended to transfer pt to [facility] for permanent pacemaker placement . 09/13/2018 Patient seen and examined in the ICU. Patient feels better. No chest pain or dyspnea. She is status post permanent pacemaker placement on 09/12/2018. No fever Vitas looks stable. WBC came back within normal limits. Sugar controlled. Creatinine 1.1. Start of this metabolic panel was unremarkable. Objective - Vital Signs Vital signs: Vital Signs Temp 97.5 F L 09/13/18 16:00 Pulse 70 09/13/18 17:00 Resp 6 L 09/13/18 17:00 BP 115/41 09/13/18 08:00 Pulse Ox 99 09/13/18 17:00 Intake & Output 09/13/18 09/13/18 09/14/18 06:59 18:59 06:59 Intake Total 864.359 7160.536 Output Total 1280 1125 Balance -856.055 275.536 Weight 131.6 kg 131.6 kg Intake: IV 150 20 Sodium Chloride 0.9% 500 150 20 ml 500 ml @ 20 mls/hr IV .Q24H [facility] Rx#:[id number] Intake, IV Titration 273.945 820.536 Amount Clindamycin 900 mg In 50 Dextrose 5% in Water 50 ml @ 50 mls/hr IVPB Q6H [facility] Rx#:[id number] Norepinephrine 4 mg In 59.00 156.439 Sodium Chloride 0.9% 250 ml @ Titrate IV .Q0M [facility] Rx#:[id number] Potassium Chloride 10 meq 400 In Water For Injection 1 100ml.bag @ 100 mls/hr IVPB Q1HR [facility] Rx#: [id number] Propofol 1,000 mg In 214.945 94.097 Empty Bag 1 bag @ Titrate IV .Q0M [facility] Rx#: [id number] Sodium Chloride 0.9% 500 120 ml 500 ml @ 0 mls/hr IV . [facility] Rx#: [id number] Oral 560 Output: Urine 1280 1125 Other: Voiding Method Indwelling Catheter Indwelling Catheter ABP, PAP, CO, CI - Last Documented Arterial Blood Pressure 107/38 - Exam GENERAL: The patient is alert and oriented x3, not in any acute distress. Well developed, well nourished. HEENT: Pupils are round and equally reacting to light. EOMI. No scleral icterus. No conjunctival pallor. Normocephalic, atraumatic. No pharyngeal erythema. No thyromegaly. CARDIOVASCULAR: S1 and S2 present. No murmurs, rubs, or gallops. PULMONARY: Chest is clear to auscultation, no wheezing or crackles. ABDOMEN: Soft, nontender, nondistended, normoactive bowel sounds. No palpable organomegaly. MUSCULOSKELETAL: No joint swelling or deformity. EXTREMITIES: No cyanosis, clubbing, or pedal edema. NEUROLOGICAL: Gross neurological examination did not reveal any focal deficits. SKIN: No rashes. - Labs CBC & Chem 7: 09/13/18 04:15 09/13/18 11:12 Labs: Abnormal Lab Results - Last 24 Hours (Table) 09/12/18 09/12/18 09/13/18 Range/Units 20:28 22:36 04:15 RBC 3.60 L (3.80-5.40) m/uL Hgb 10.8 L (11.4-16.0) gm/dL Hct 33.3 L (34.0-46.0) % ABG pH 7.62 H* (7.35-7.45) ABG pCO2 (35-45) mmHg ABG pO2 158 H (83-108) mmHg ABG HCO3 37 H (21-25) mmol/L ABG Total CO2 38 H (19-24) mmol/L ABG O2 Saturation 99.4 H (94-97) % Carbon Dioxide (22-30) mmol/L BUN (7-17) mg/dL Creatinine (0.52-1.04) mg/dL Glucose (74-99) mg/dL POC Glucose (mg/dL) (75-99) mg/dL Calcium (8.4-10.2) mg/dL Urine Blood Small H (Negative) Ur Leukocyte Esterase Small H (Negative) Urine WBC 14 H (0-5) /hpf Urine Bacteria Rare H (None) /hpf Urine Mucus Rare H (None) /hpf 09/13/18 09/13/18 09/13/18 Range/Units 04:15 06:30 07:00 RBC (3.80-5.40) m/uL Hgb (11.4-16.0) gm/dL Hct (34.0-46.0) % ABG pH 7.49 H (7.35-7.45) ABG pCO2 49 H (35-45) mmHg ABG pO2 (83-108) mmHg ABG HCO3 37 H (21-25) mmol/L ABG Total CO2 38 H (19-24) mmol/L ABG O2 Saturation 99.0 H (94-97) % Carbon Dioxide 38 H (22-30) mmol/L BUN 34 H (7-17) mg/dL Creatinine 1.19 H (0.52-1.04) mg/dL Glucose 176 H (74-99) mg/dL POC Glucose (mg/dL) 210 H (75-99) mg/dL Calcium 7.9 L (8.4-10.2) mg/dL Urine Blood (Negative) Ur Leukocyte Esterase (Negative) Urine WBC (0-5) /hpf Urine Bacteria (None) /hpf Urine Mucus (None) /hpf 09/13/18 09/13/18 09/13/18 Range/Units 10:33 11:11 11:38 RBC (3.80-5.40) m/uL Hgb (11.4-16.0) gm/dL Hct (34.0-46.0) % ABG pH 7.50 H 7.48 H (7.35-7.45) ABG pCO2 50 H 52 H (35-45) mmHg ABG pO2 118 H (83-108) mmHg ABG HCO3 39 H 39 H (21-25) mmol/L ABG Total CO2 41 H 40 H (19-24) mmol/L ABG O2 Saturation 99.8 H 98.3 H (94-97) % Carbon Dioxide (22-30) mmol/L BUN (7-17) mg/dL Creatinine (0.52-1.04) mg/dL Glucose (74-99) mg/dL POC Glucose (mg/dL) 188 H (75-99) mg/dL Calcium (8.4-10.2) mg/dL Urine Blood (Negative) Ur Leukocyte Esterase (Negative) Urine WBC (0-5) /hpf Urine Bacteria (None) /hpf Urine Mucus (None) /hpf 09/13/18 Range/Units 17:15 RBC (3.80-5.40) m/uL Hgb (11.4-16.0) gm/dL Hct (34.0-46.0) % ABG pH (7.35-7.45) ABG pCO2 (35-45) mmHg ABG pO2 (83-108) mmHg ABG HCO3 (21-25) mmol/L ABG Total CO2 (19-24) mmol/L ABG O2 Saturation (94-97) % Carbon Dioxide (22-30) mmol/L BUN (7-17) mg/dL Creatinine (0.52-1.04) mg/dL Glucose (74-99) mg/dL POC Glucose (mg/dL) 136 H (75-99) mg/dL Calcium (8.4-10.2) mg/dL Urine Blood (Negative) Ur Leukocyte Esterase (Negative) Urine WBC (0-5) /hpf Urine Bacteria (None) /hpf Urine Mucus (None) /hpf Microbiology - Last 24 Hours (Table) 09/13/18 07:50 Gram Stain - Preliminary Sputum Sputum Culture - Preliminary 09/12/18 22:36 Urine Culture - Preliminary Urine,Catheterized Assessment and Plan Assessment: The cardia, evaluated by cardiology. Planning for pacemaker. Dizziness and presyncope, secondary to above Generalized weakness, mostly secondary to above Hyperglycemia with uncontrolled diabetes type 2 History of coronary artery disease status post CABG and valve replacement Obstructive sleep apnea on CPAP at home Morbid obesity COPD/asthma History of CVA/TIA acute kidney injury most likely prerenal Hyperlipidemia Hypothyroidism Parkinsonism Hypoalbuminemia 2.9 Plan: This is a pleasant 72 years old female who presents because of symptomatic bradycardia and junctional rhythm. Evaluated by cardiology. Patient planned to go for pacemaker tomorrow. Labs and medication were reviewed.. Continue same treatment. Continue with symptomatic treatment. Resume home medication. Monitor lytes and vitals. DVT and GI prophylaxis. Further recommendations of the clinical course of the patient DVT prophylaxis: Subcutaneous heparin GI Prophylaxis: Pepcid PT/OT: Pending Prognosis is guarded
[2018-09-13] MEDS: BUDESONIDE 0.5 MG/2 ML NEBU INHALATION SCH (20:33)
[2018-09-13] MEDS: IPRATROPIUM-ALBUTEROL 3 ML NEB INHALATION SCH (20:33)
[2018-09-13 21:44] LABS: Glucose,Whole Blood 199 mg/dL (75-99)
[2018-09-13] MEDS: ATORVASTATIN 10 MG TAB PO SCH (21:57)
[2018-09-13] MEDS: CIPROFLOXACIN HCL 500 MG TAB PO SCH (21:58)
[2018-09-13] MEDS: MONTELUKAST 10 MG TAB PO SCH (21:59)
[2018-09-14] MEDS: HYDROcodone/APAP 5-325MG 1 EACH TAB PO PRN ×3 (04:09→18:15)
[2018-09-14 04:40] LABS: Basophils % (A) 0 %; Eosinophils # (A) 0.1 k/uL (0-0.7); Eosinophils % (A) 3 %; HCT 29.9 % (34.0-46.0); Lymphocytes # (A) 0.9 k/uL (1.0-4.8); Lymphocytes % (A) 20 %; MCH 30.4 pg (25.0-35.0); MCHC 33.4 g/dL (31.0-37.0); Mean Platelet Volume 7.5; Monocytes # (A) 0.4 k/uL (0-1.0); Monocytes % (A) 8 %; Neutrophils % (A) 66 %; Platelet Count 145 k/uL (150-450); RBC 3.28 m/uL (3.80-5.40); RDW 14.4 % (11.5-15.5); WBC 4.6 k/uL (3.8-10.6)
[2018-09-14 04:50] LABS: Calcium 7.6 mg/dL (8.4-10.2); Phosphorus 3.4 mg/dL (2.5-4.5); Potassium 3.8 mmol/L (3.5-5.1)
[2018-09-14] MEDS: LEVOTHYROXINE 125 MCG TAB PO SCH (06:28)
[2018-09-14] MEDS ORDERED: POTASSIUM CHLORIDE ER 20 MEQ TAB.ER PO SCH (07:00)
--- NOTE | 2018-09-14 07:15 | XR ---
EXAMINATION TYPE: XR chest 1V portable DATE OF EXAM: 09/14/2018 HISTORY: Tube placement. REFERENCE: Previous study dated 09/13/2018. FINDINGS: There has been a midline sternotomy. There is a bipolar pacemaker in place on the left. The patient's endotracheal tube has been removed. The heart is mildly enlarged. There is a small left effusion. There is left basilar airspace disease. IMPRESSION: 1. MILD CARDIOMEGALY. 2. SMALL LEFT EFFUSION. 3. LEFT BASILAR AIRSPACE DISEASE.
[2018-09-14] MEDS: BUDESONIDE 0.5 MG/2 ML NEBU INHALATION SCH ×2 (09:07→19:40)
[2018-09-14] MEDS: IPRATROPIUM-ALBUTEROL 3 ML NEB INHALATION SCH ×4 (09:07→19:39)
[2018-09-14] MEDS: INSULIN ASPART 100 UNIT/ML 1 ML 10 ML VIAL SQ SCH ×4 (09:20→20:24)
[2018-09-14] MEDS: buPROPion 75 MG TAB PO SCH (09:21)
[2018-09-14] MEDS: FUROSEMIDE 10 MG/ML 4 ML VIAL IV SCH ×2 (09:21→20:08)
[2018-09-14] MEDS: CIPROFLOXACIN HCL 500 MG TAB PO SCH ×2 (09:21→20:08)
[2018-09-14] MEDS: HEPARIN SODIUM,PORCINE 5,000 UNIT/ML 1 ML VIAL SQ SCH ×2 (09:21→20:08)
[2018-09-14] MEDS: PREGABALIN 75 MG CAP PO SCH ×2 (09:22→20:09)
[2018-09-14] MEDS: METOPROLOL TARTRATE 50 MG TAB PO SCH ×2 (09:22→20:09)
[2018-09-14] MEDS: PANTOPRAZOLE 40 MG/10 ML VIAL IV SCH (09:22)
[2018-09-14 11:54] LABS: Glucose,Whole Blood 266 mg/dL (75-99)
--- NOTE | 2018-09-14 16:28 | P.PN ---
Subjective Niesha Gonzalez a 72 y.o.femalewith a known history of Coronary artery disease status post CABG and valve repair, asthma/COPD, hypothyroidism, history of CVA/TIA, obstructive sleep apnea on CPAP and morbid obesity came to ER with the complaints of generalized weakness and dizziness. Patient was also having shortness of breath the past 2-3 days. Patient was found to have bradycardia and is currently beta chun dose is on hold. Cardio was consulted. TSH level is within normal limits. optimization consultant recommended to transfer pt to [facility] for permanent pacemaker placement . 09/13/2018 Patient seen and examined in the ICU. Patient feels better. No chest pain or dyspnea. She is status post permanent pacemaker placement on 09/12/2018. No fever Vitas looks stable. WBC came back within normal limits. Sugar controlled. Creatinine 1.1. Start of this metabolic panel was unremarkable. 09/14/2018 Patient remains in the ICU as overflow bed. Patient Pain is controlled, no dyspnea. No fever. Repeat chest x-ray showing mild cardiomegaly with small left effusion. Vitals are stable and CBC was unremarkable except for hemoglobin of 10.0. Creatinine 0.9 Objective - Vital Signs Vital signs: Vital Signs Temp 97.4 F L 09/14/18 16:00 Pulse 66 09/14/18 16:00 Resp 16 09/14/18 16:00 BP 111/41 09/14/18 16:00 Pulse Ox 94 L 09/14/18 16:00 Intake & Output 09/13/18 09/14/18 09/14/18 18:59 06:59 18:59 Intake Total 1400.536 220 120 Output Total 1125 1095 795 Balance 275.536 -875 -675 Weight 131.6 kg 129.1 kg Intake: IV 20 220 120 0.9 220 120 Sodium Chloride 0.9% 500 20 ml 500 ml @ 20 mls/hr IV .Q24H [facility] Rx#:[id number] Intake, IV Titration 820.536 Amount Clindamycin 900 mg In 50 Dextrose 5% in Water 50 ml @ 50 mls/hr IVPB Q6H [facility] Rx#:[id number] Norepinephrine 4 mg In 156.439 Sodium Chloride 0.9% 250 ml @ Titrate IV .Q0M [facility] Rx#:[id number] Potassium Chloride 10 meq 400 In Water For Injection 1 100ml.bag @ 100 mls/hr IVPB Q1HR [facility] Rx#: [id number] Propofol 1,000 mg In 94.097 Empty Bag 1 bag @ Titrate IV .Q0M [facility] Rx#: [id number] Sodium Chloride 0.9% 500 120 ml 500 ml @ 0 mls/hr IV . [facility] Rx#: [id number] Oral 560 Output: Urine 1125 1095 795 Other: Voiding Method Indwelling Catheter Indwelling Catheter Indwelling Catheter # Bowel Movements 1 ABP, PAP, CO, CI - Last Documented Arterial Blood Pressure 125/48 - Exam GENERAL: The patient is alert and oriented x3, not in any acute distress. Well developed, well nourished. HEENT: Pupils are round and equally reacting to light. EOMI. No scleral icterus. No conjunctival pallor. Normocephalic, atraumatic. No pharyngeal erythema. No thyromegaly. CARDIOVASCULAR: S1 and S2 present. No murmurs, rubs, or gallops. PULMONARY: Chest is clear to auscultation, no wheezing or crackles. ABDOMEN: Soft, nontender, nondistended, normoactive bowel sounds. No palpable organomegaly. MUSCULOSKELETAL: No joint swelling or deformity. EXTREMITIES: No cyanosis, clubbing, or pedal edema. NEUROLOGICAL: Gross neurological examination did not reveal any focal deficits. SKIN: No rashes. - Labs CBC & Chem 7: 09/14/18 04:20 09/14/18 04:20 Labs: Abnormal Lab Results - Last 24 Hours (Table) 09/13/18 09/13/18 09/14/18 Range/Units 17:15 21:41 04:20 RBC 3.28 L (3.80-5.40) m/uL Hgb 10.0 L (11.4-16.0) gm/dL Hct 29.9 L (34.0-46.0) % Plt Count 145 L (150-450) k/uL Lymphocytes # 0.9 L (1.0-4.8) k/uL Chloride (98-107) mmol/L Carbon Dioxide (22-30) mmol/L BUN (7-17) mg/dL Glucose (74-99) mg/dL POC Glucose (mg/dL) 136 H 199 H (75-99) mg/dL Calcium (8.4-10.2) mg/dL 09/14/18 09/14/18 Range/Units 04:20 11:50 RBC (3.80-5.40) m/uL Hgb (11.4-16.0) gm/dL Hct (34.0-46.0) % Plt Count (150-450) k/uL Lymphocytes # (1.0-4.8) k/uL Chloride 97 L (98-107) mmol/L Carbon Dioxide 36 H (22-30) mmol/L BUN 30 H (7-17) mg/dL Glucose 161 H (74-99) mg/dL POC Glucose (mg/dL) 266 H (75-99) mg/dL Calcium 7.6 L (8.4-10.2) mg/dL Microbiology - Last 24 Hours (Table) 09/12/18 22:36 Urine Culture - Final Urine,Catheterized 09/13/18 07:50 Gram Stain - Preliminary Sputum Sputum Culture - Preliminary Assessment and Plan Assessment: The cardia, evaluated by cardiology. Planning for pacemaker. Dizziness and presyncope, secondary to above Generalized weakness, mostly secondary to above Hyperglycemia with uncontrolled diabetes type 2 History of coronary artery disease status post CABG and valve replacement Obstructive sleep apnea on CPAP at home Morbid obesity COPD/asthma History of CVA/TIA acute kidney injury most likely prerenal Hyperlipidemia Hypothyroidism Parkinsonism Hypoalbuminemia 2.9 Plan: This is a pleasant 72 years old female who presents because of symptomatic bradycardia and junctional rhythm. Evaluated by cardiology. Patient planned to go for pacemaker tomorrow. Labs and medication were reviewed.. Continue same treatment. Continue with symptomatic treatment. Resume home medication. Monitor lytes and vitals. DVT and GI prophylaxis. Further recommendations of the clinical course of the patient DVT prophylaxis: Subcutaneous heparin GI Prophylaxis: Pepcid PT/OT: Pending Prognosis is guarded
[2018-09-14 17:25] LABS: Glucose,Whole Blood 207 mg/dL (75-99)
--- NOTE | 2018-09-14 19:23 | PN ---
PROGRESS NOTE DATE OF SERVICE: 09/14/2018 She has been hemodynamically stable. Her pacemaker has been in. She continues to have an art line. However, she is not on any pressors. She has mild shortness of breath. PHYSICAL EXAMINATION: Blood pressure is 111/41, respiratory rate of 16, pulse rate 66, temperature 97.4, O2 saturation on 2 L by nasal cannula is 94%. HEENT reveals pupils that are equal. Chest reveals scattered rhonchi that clear upon cough. Cardiovascular system reveals an S1, S2. Abdomen is soft. There is no pedal edema. I/O is showing a -675 mL for today, - 1,850 for the previous day. IMPRESSION: 1. Third-degree heart block status post pacemaker placement. 2. Acute respiratory failure. 3. Pulmonary edema. 4. Congestive heart failure. 5. Severe asthma with acute exacerbation. 6. Obesity. 7. Valvular heart disease. At this point in time, would recommend transferring the patient out of the intensive care unit, discontinuing the arterial line, optimizing her fluid status, continuing her on bronchodilators, aerosolized steroids, montelukast and insulin. Continue her on CPAP at night. Depending on how she does we should make further changes to her care. We would have Physical Medicine Rehab further evaluate the patient for possible inpatient rehab. MMODL / IJN: [id number] /
[2018-09-14] MEDS: ATORVASTATIN 10 MG TAB PO SCH (20:08)
[2018-09-14] MEDS: MONTELUKAST 10 MG TAB PO SCH (20:09)
[2018-09-14 20:23] LABS: Glucose,Whole Blood 248 mg/dL (75-99)
[2018-09-15] MEDS: HYDROcodone/APAP 5-325MG 1 EACH TAB PO PRN ×2 (01:09→19:51)
[2018-09-15 06:22] LABS: Glucose,Whole Blood 214 mg/dL (75-99)
[2018-09-15] MEDS: INSULIN ASPART 100 UNIT/ML 1 ML 10 ML VIAL SQ SCH ×4 (06:27→21:08)
[2018-09-15] MEDS: LEVOTHYROXINE 125 MCG TAB PO SCH (06:27)
[2018-09-15] MEDS: PANTOPRAZOLE 40 MG/10 ML VIAL IV SCH (08:40)
[2018-09-15] MEDS: FUROSEMIDE 10 MG/ML 4 ML VIAL IV SCH ×2 (08:41→19:52)
[2018-09-15] MEDS: HEPARIN SODIUM,PORCINE 5,000 UNIT/ML 1 ML VIAL SQ SCH ×2 (08:41→19:52)
[2018-09-15] MEDS: CIPROFLOXACIN HCL 500 MG TAB PO SCH ×2 (08:41→19:52)
[2018-09-15] MEDS: PREGABALIN 75 MG CAP PO SCH ×2 (08:41→19:52)
[2018-09-15] MEDS: METOPROLOL TARTRATE 50 MG TAB PO SCH ×2 (08:41→19:52)
[2018-09-15] MEDS: buPROPion 75 MG TAB PO SCH (08:41)
[2018-09-15 08:49] LABS: Basophils % (A) 1 %; Eosinophils # (A) 0.2 k/uL (0-0.7); Eosinophils % (A) 4 %; HCT 33.2 % (34.0-46.0); HGB 11.1 gm/dL (11.4-16.0); Lymphocytes # (A) 0.9 k/uL (1.0-4.8); Lymphocytes % (A) 17 %; MCH 30.4 pg (25.0-35.0); MCHC 33.5 g/dL (31.0-37.0); MCV 90.9 fL (80.0-100.0); Mean Platelet Volume 8.1; Monocytes # (A) 0.5 k/uL (0-1.0); Monocytes % (A) 9 %; Neutrophils # (A) 3.5 k/uL (1.3-7.7); Neutrophils % (A) 67 %; Platelet Count 145 k/uL (150-450); RBC 3.65 m/uL (3.80-5.40); RDW 14.1 % (11.5-15.5); WBC 5.3 k/uL (3.8-10.6)
[2018-09-15] MEDS: IPRATROPIUM-ALBUTEROL 3 ML NEB INHALATION SCH ×4 (08:52→20:11)
[2018-09-15] MEDS: BUDESONIDE 0.5 MG/2 ML NEBU INHALATION SCH ×2 (08:52→20:11)
[2018-09-15 08:58] LABS: Calcium 8.1 mg/dL (8.4-10.2)
[2018-09-15 09:01] LABS: Magnesium 1.9 mg/dL (1.6-2.3); Phosphorus 2.8 mg/dL (2.5-4.5); Potassium 4.7 mmol/L (3.5-5.1)
[2018-09-15 11:04] LABS: Glucose,Whole Blood 322 mg/dL (75-99)
[2018-09-15] MEDS ORDERED: ERGOCALCIFEROL 50,000 UNIT CAP PO SCH (12:00)
[2018-09-15] MEDS: INSULIN DETEMIR 100 UNIT/ML 10 ML VIAL SQ SCH ×2 (14:40→21:08)
--- NOTE | 2018-09-15 16:10 | PN ---
PROGRESS NOTE DATE OF SERVICE: 09/15/2018 She was seen on September2018. She has been hemodynamically stable. Heart rate is in the 70s. She is doing significantly better overall. On physical examination, respiratory rate is 16, pulse rate of 64. She is afebrile. Blood pressure is 137/57, O2 saturation on 2 L by nasal cannula is 97%. HEENT reveals pupils that are equal. No jugular venous distention. Chest is clear. Cardiovascular system reveals an S1, S2. Abdomen is soft. There is no pedal edema. Labs reveal a white count of 5.3, hemoglobin of 11.1, sodium 137, potassium 4.7, chloride 101, bicarb 32. IMPRESSION: At this time is: 1. Third-degree heart block status post pacemaker placement. 2. Aortic valvular heart disease, status post aortic valve replacement in the past. 3. Congestive heart failure and pulmonary edema. 4. Severe asthma. 5. Diabetes mellitus. Continue to increase activity level. Discharge planning from a pulmonary standpoint would be appropriate at this time with close outpatient follow up. Continue on the current medications which were reviewed. MMODL / IJN: [id number] /
--- NOTE | 2018-09-15 16:14 | P.PN ---
Subjective Progress Note Date: 09/15/18 This is a 72-year-old female who was transferred here from [facility], patient had intermittent complete heart block and underwent implantation of a permanent pacemaker by Dr. Zhou. She was seen and examined on the telemetry unit today, hemodynamically stable. Objective - Vital Signs Vital signs: Vital Signs Temp 97.7 F 09/15/18 08:35 Pulse 74 09/15/18 12:11 Resp 16 09/15/18 11:15 BP 137/57 09/15/18 11:15 Pulse Ox 97 09/15/18 11:15 Intake & Output 09/14/18 09/15/18 09/15/18 18:59 06:59 18:59 Intake Total 120 100 220 Output Total 795 750 100 Balance -675 -650 120 Weight 120.7 kg Intake: IV 120 0.9 120 Oral 100 220 Output: Urine 795 750 100 Uretheral (Carpenter) 250 Other: Voiding Method Indwelling Catheter Indwelling Catheter # Voids 4 # Bowel Movements 1 ABP, PAP, CO, CI - Last Documented Arterial Blood Pressure 125/48 - Exam PHYSICAL EXAMINATION: GENERAL: 72-year-old female in no acute distress at the time of my examination HEENT: Head is atraumatic, normocephalic. Pupils equal, round. Sclera anicteric. Conjunctiva are clear. Mucous membranes of the mouth are moist. Neck is supple. There is no elevated jugular venous pressure.] bruit is heard. HEART EXAMINATION: Heart S1, S2 normal. No murmur or gallop heard. CHEST EXAMINATION: Lungs are clear to auscultation and precussion. No chest wall tenderness is noted on palpation or with deep breathing. Pacemaker dressing dry and intact ABDOMEN: Soft, nontender. Bowel sounds are heard. No organomegaly noted. EXTREMITIES: 2+ peripheral pulses with no evidence of peripheral edema and no calf tenderness noted. NEUROLOGIC patient is awake, alert and oriented ?-3. . - Labs CBC & Chem 7: 09/15/18 07:49 09/15/18 07:49 Labs: Abnormal Lab Results - Last 24 Hours (Table) 09/14/18 09/14/18 09/15/18 Range/Units 17:11 20:18 06:10 RBC (3.80-5.40) m/uL Hgb (11.4-16.0) gm/dL Hct (34.0-46.0) % Plt Count (150-450) k/uL Lymphocytes # (1.0-4.8) k/uL Carbon Dioxide (22-30) mmol/L BUN (7-17) mg/dL Glucose (74-99) mg/dL POC Glucose (mg/dL) 207 H 248 H 214 H (75-99) mg/dL Calcium (8.4-10.2) mg/dL 09/15/18 09/15/18 09/15/18 Range/Units 07:49 07:49 11:03 RBC 3.65 L (3.80-5.40) m/uL Hgb 11.1 L (11.4-16.0) gm/dL Hct 33.2 L (34.0-46.0) % Plt Count 145 L (150-450) k/uL Lymphocytes # 0.9 L (1.0-4.8) k/uL Carbon Dioxide 32 H (22-30) mmol/L BUN 26 H (7-17) mg/dL Glucose 192 H (74-99) mg/dL POC Glucose (mg/dL) 322 H (75-99) mg/dL Calcium 8.1 L (8.4-10.2) mg/dL Microbiology - Last 24 Hours (Table) 09/13/18 07:50 Gram Stain - Final Sputum Sputum Culture - Final 09/12/18 22:36 Urine Culture - Final Urine,Catheterized Assessment and Plan Plan: Assessment and plan #1 status post implantation of a permanent pacemaker for intermittent third- degree heart block #2 postoperative respiratory failure secondary to COPD #3 diabetes #4 sleep apnea #5 Parkinson's #6 history of coronary artery disease or prior bypass and valve replacement to the aortic valve Plan We will continue the patient on her current medications. Plan for discharge soon DNP note has been reviewed, I agree with a documented findings and plan of care. Patient was seen and examined.
[2018-09-15 16:54] LABS: Glucose,Whole Blood 231 mg/dL (75-99)
[2018-09-15] MEDS: MONTELUKAST 10 MG TAB PO SCH (19:52)
[2018-09-15] MEDS: ATORVASTATIN 10 MG TAB PO SCH (19:52)
[2018-09-15 20:21] LABS: Glucose,Whole Blood 297 mg/dL (75-99)
--- NOTE | 2018-09-15 21:16 | P.PN ---
Subjective Niesha Gonzalez a 72 y.o.femalewith a known history of Coronary artery disease status post CABG and valve repair, asthma/COPD, hypothyroidism, history of CVA/TIA, obstructive sleep apnea on CPAP and morbid obesity came to ER with the complaints of generalized weakness and dizziness. Patient was also having shortness of breath the past 2-3 days. Patient was found to have bradycardia and is currently beta chun dose is on hold. Cardio was consulted. TSH level is within normal limits. hospital chaplain recommended to transfer pt to [facility] for permanent pacemaker placement . 09/13/2018 Patient seen and examined in the ICU. Patient feels better. No chest pain or dyspnea. She is status post permanent pacemaker placement on 09/12/2018. No fever Vitas looks stable. WBC came back within normal limits. Sugar controlled. Creatinine 1.1. Start of this metabolic panel was unremarkable. 09/14/2018 Patient remains in the ICU as overflow bed. Patient Pain is controlled, no dyspnea. No fever. Repeat chest x-ray showing mild cardiomegaly with small left effusion. Vitals are stable and CBC was unremarkable except for hemoglobin of 10.0. Creatinine 0.9 09/15/18 pt is moved to the general medical floor today , she is feeling improved and wanted to go home today , i explained to her and at bed side the need to remain in hospital now and she agrees. pt has been following by cardiology team , pt was been evaluated by PT who recommended [facility] or [facility] . however OT recommended [facility]. pt was on insulin pump at home and she follows with the [facility] as outpt. pt is on ISS currently , she needed more than 25 units in the last 24 hrs , we placed pt on levemir 20 U bid and monitor her glucose. plan discussed with the pt and she agrees Objective - Vital Signs Vital signs: Vital Signs Temp 97.9 F 09/15/18 20:04 Pulse 70 09/15/18 20:22 Resp 20 09/15/18 20:04 BP 137/62 09/15/18 20:04 Pulse Ox 98 09/15/18 20:04 Intake & Output 09/15/18 09/15/18 09/16/18 06:59 18:59 06:59 Intake Total 100 220 120 Output Total 750 100 Balance -650 120 120 Weight 120.7 kg Intake: Oral 100 220 120 Output: Urine 750 100 Uretheral (Carpenter) 250 Other: Voiding Method Indwelling Catheter Indwelling Catheter Toilet # Voids 4 ABP, PAP, CO, CI - Last Documented Arterial Blood Pressure 125/48 - Exam GENERAL: The patient is alert and oriented x3, not in any acute distress. Well developed, well nourished. HEENT: Pupils are round and equally reacting to light. EOMI. No scleral icterus. No conjunctival pallor. Normocephalic, atraumatic. No pharyngeal erythema. No thyromegaly. CARDIOVASCULAR: S1 and S2 present. No murmurs, rubs, or gallops. PULMONARY: Chest is clear to auscultation, no wheezing or crackles. ABDOMEN: Soft, nontender, nondistended, normoactive bowel sounds. No palpable organomegaly. MUSCULOSKELETAL: No joint swelling or deformity. EXTREMITIES: No cyanosis, clubbing, or pedal edema. NEUROLOGICAL: Gross neurological examination did not reveal any focal deficits. SKIN: No rashes. - Labs CBC & Chem 7: 09/15/18 07:49 09/15/18 07:49 Labs: Abnormal Lab Results - Last 24 Hours (Table) 09/15/18 09/15/18 09/15/18 Range/Units 06:10 07:49 07:49 RBC 3.65 L (3.80-5.40) m/uL Hgb 11.1 L (11.4-16.0) gm/dL Hct 33.2 L (34.0-46.0) % Plt Count 145 L (150-450) k/uL Lymphocytes # 0.9 L (1.0-4.8) k/uL Carbon Dioxide 32 H (22-30) mmol/L BUN 26 H (7-17) mg/dL Glucose 192 H (74-99) mg/dL POC Glucose (mg/dL) 214 H (75-99) mg/dL Calcium 8.1 L (8.4-10.2) mg/dL 09/15/18 09/15/18 09/15/18 Range/Units 11:03 16:53 20:18 RBC (3.80-5.40) m/uL Hgb (11.4-16.0) gm/dL Hct (34.0-46.0) % Plt Count (150-450) k/uL Lymphocytes # (1.0-4.8) k/uL Carbon Dioxide (22-30) mmol/L BUN (7-17) mg/dL Glucose (74-99) mg/dL POC Glucose (mg/dL) 322 H 231 H 297 H (75-99) mg/dL Calcium (8.4-10.2) mg/dL Microbiology - Last 24 Hours (Table) 09/13/18 07:50 Gram Stain - Final Sputum Sputum Culture - Final Assessment and Plan Assessment: The cardia, evaluated by cardiology. Planning for pacemaker. Dizziness and presyncope, secondary to above Generalized weakness, mostly secondary to above Hyperglycemia with uncontrolled diabetes type 2 History of coronary artery disease status post CABG and valve replacement Obstructive sleep apnea on CPAP at home Morbid obesity COPD/asthma History of CVA/TIA acute kidney injury most likely prerenal Hyperlipidemia Hypothyroidism Parkinsonism Hypoalbuminemia 2.9 Plan: This is a pleasant 72 years old female who presents because of symptomatic bradycardia and junctional rhythm. Evaluated by cardiology. Patient planned to go for pacemaker tomorrow. Labs and medication were reviewed.. Continue same treatment. Continue with symptomatic treatment. Resume home medication. Monitor lytes and vitals. DVT and GI prophylaxis. Further recommendations of the clinical course of the patient DVT prophylaxis: Subcutaneous heparin GI Prophylaxis: Pepcid PT/OT: Pending Prognosis is guarded
[2018-09-16 05:42] VITALS: RESP 20
[2018-09-16 05:53] LABS: Glucose,Whole Blood 223 mg/dL (75-99)
[2018-09-16] MEDS: HYDROcodone/APAP 5-325MG 1 EACH TAB PO PRN (05:55)
[2018-09-16] MEDS: LEVOTHYROXINE 125 MCG TAB PO SCH (05:56)
[2018-09-16] MEDS: INSULIN ASPART 100 UNIT/ML 1 ML 10 ML VIAL SQ SCH ×2 (05:56→12:42)
[2018-09-16 07:23] LABS: Basophils % (A) 0 %; Eosinophils # (A) 0.1 k/uL (0-0.7); Eosinophils % (A) 3 %; HCT 32.1 % (34.0-46.0); HGB 10.5 gm/dL (11.4-16.0); Lymphocytes # (A) 0.9 k/uL (1.0-4.8); Lymphocytes % (A) 19 %; MCH 29.9 pg (25.0-35.0); MCHC 32.7 g/dL (31.0-37.0); MCV 91.4 fL (80.0-100.0); Mean Platelet Volume 6.8; Monocytes # (A) 0.4 k/uL (0-1.0); Monocytes % (A) 9 %; Neutrophils # (A) 3.1 k/uL (1.3-7.7); Neutrophils % (A) 66 %; Platelet Count 155 k/uL (150-450); RBC 3.51 m/uL (3.80-5.40); WBC 4.7 k/uL (3.8-10.6)
[2018-09-16 07:29] LABS: Calcium 8.1 mg/dL (8.4-10.2); Magnesium 1.7 mg/dL (1.6-2.3); Phosphorus 2.8 mg/dL (2.5-4.5)
[2018-09-16] MEDS: BUDESONIDE 0.5 MG/2 ML NEBU INHALATION SCH (07:59)
[2018-09-16] MEDS: IPRATROPIUM-ALBUTEROL 3 ML NEB INHALATION SCH ×2 (07:59→11:42)
[2018-09-16] MEDS: HEPARIN SODIUM,PORCINE 5,000 UNIT/ML 1 ML VIAL SQ SCH (08:37)
[2018-09-16] MEDS: CIPROFLOXACIN HCL 500 MG TAB PO SCH (08:37)
[2018-09-16] MEDS: buPROPion 75 MG TAB PO SCH (08:37)
[2018-09-16] MEDS: PREGABALIN 75 MG CAP PO SCH (08:37)
[2018-09-16] MEDS: FUROSEMIDE 10 MG/ML 4 ML VIAL IV SCH (08:37)
[2018-09-16] MEDS: PANTOPRAZOLE 40 MG/10 ML VIAL IV SCH (08:37)
[2018-09-16] MEDS: METOPROLOL TARTRATE 50 MG TAB PO SCH (08:37)
[2018-09-16] MEDS: INSULIN DETEMIR 100 UNIT/ML 10 ML VIAL SQ SCH (09:35)
--- NOTE | 2018-09-16 09:42 | P.PN ---
Subjective Progress Note Date: 09/16/18 Interval history: 09/16/2017patient is being seen examined and evaluated today on rounds. She is resting up in bed on 2 L of supplemental oxygen. She denies any shortness breath cough or congestion. She is status post pacemaker insertion and is hemodynamically stable. Her breathing is at baseline. She is preparing for discharge today. All labs and reports have been reviewed. Objective - Vital Signs Vital signs: Vital Signs Temp 97.6 F 09/16/18 04:00 Pulse 72 09/16/18 08:20 Resp 20 09/16/18 04:00 BP 126/59 09/16/18 04:00 Pulse Ox 95 09/16/18 04:00 Intake & Output 09/15/18 09/16/18 09/16/18 18:59 06:59 18:59 Intake Total 220 120 240 Output Total 100 900 Balance 120 -780 240 Weight 119.8 kg Intake: Oral 220 120 240 Output: Urine 100 900 Other: Voiding Method Indwelling Catheter Toilet # Voids 4 ABP, PAP, CO, CI - Last Documented Arterial Blood Pressure 125/48 - Exam GENERAL EXAM: Alert, obese, comfortable in no apparent distress. HEAD: Normocephalic. EYES: Normal reaction of pupils, equal size. NOSE: Clear with pink turbinates. THROAT: No erythema or exudates. NECK: No masses, no JVD. CHEST: No chest wall deformity. Pacemaker insertion site clean dry and intact with small amount of shadowing LUNGS: Equal air entry with some faint rhonchi. CVS: S1 and S2 normal with no audible mumurs, regular rhythm. ABDOMEN: No hepatosplenomegaly, normal bowel sounds, no guarding or rigidity. EXTREMITIES: No edema noted, pedal pulses palpable. CENTRAL NERVOUS SYSTEM: No focal deficits, tone is normal in all 4 extremities. - Labs CBC & Chem 7: 09/16/18 06:42 09/16/18 06:42 Labs: Abnormal Lab Results - Last 24 Hours (Table) 09/15/18 09/15/18 09/15/18 Range/Units 11:03 16:53 20:18 RBC (3.80-5.40) m/uL Hgb (11.4-16.0) gm/dL Hct (34.0-46.0) % Lymphocytes # (1.0-4.8) k/uL Chloride (98-107) mmol/L Carbon Dioxide (22-30) mmol/L BUN (7-17) mg/dL Glucose (74-99) mg/dL POC Glucose (mg/dL) 322 H 231 H 297 H (75-99) mg/dL Calcium (8.4-10.2) mg/dL 09/16/18 09/16/18 09/16/18 Range/Units 05:52 06:42 06:42 RBC 3.51 L (3.80-5.40) m/uL Hgb 10.5 L (11.4-16.0) gm/dL Hct 32.1 L (34.0-46.0) % Lymphocytes # 0.9 L (1.0-4.8) k/uL Chloride 96 L (98-107) mmol/L Carbon Dioxide 38 H (22-30) mmol/L BUN 19 H (7-17) mg/dL Glucose 204 H (74-99) mg/dL POC Glucose (mg/dL) 223 H (75-99) mg/dL Calcium 8.1 L (8.4-10.2) mg/dL Microbiology - Last 24 Hours (Table) 09/13/18 07:50 Gram Stain - Final Sputum Sputum Culture - Final Assessment and Plan Assessment: Assessment Status post pacemaker insertion for Third-degree heart block Symptomatic bradycardia related to above Severe COPD not acutely exacerbated Obstructive sleep apnea uses home CPAP Acute on chronic hypoxic respiratory failure requiring supplemental oxygen Morbid obesity Diabetes mellitus type 2 History of CAD with previous CABG and aortic valve replacement Plan Patient is cleared for discharge from pulmonary standpoint. Medications have been reviewed and will be continued as ordered. appreciate cardiology recommendations Continue with pulmonary hygiene, coughing and deep breathing exercises, and supportive care. Supplemental oxygen to maintain oxygen saturations of 92% or better. Home CPAP Continue nebulizer treatments. Initiate and encourage incentive spirometer GI and DVT prophylaxis. Increase activity as tolerated PT and OT We will continue to monitor labs/results and adjust treatment as necessary. Further recommendations pending. I, the signing physician performed an examination of the patient, discussed and directed their management with the nurse practitioner. I have reviewed the nurse practitioner's note and agree with the documented findings, orders and plan of care. Nurse practitioner acting as a scribe for the signing physician.
[2018-09-16 10:36] VITALS: BP 127/58; TEMP 97.7
--- NOTE | 2018-09-16 11:13 | P.DS ---
Providers Date of admission: 09/11/18 10:29 Attending physician: Dannielle Garrett Consults: 09/12/18 08:19 Consult Physician Routine Consulting Provider: Jere Zhou Consult Reason/Comments: planned pacemaker Do you want consulting provider notified?: Already Contacted 09/12/18 19:22 Consult Physician Stat Consulting Provider: Trupti Ayala Consult Reason/Comments: copd/intubated for procedure Do you want consulting provider notified?: Yes 09/13/18 10:25 Consult Physician Routine Consulting Provider: Camilo Bronson Consult Reason/Comments: pulmonary management Do you want consulting provider notified?: Yes Primary care physician: Helen Newberry Joy Hospital Course: Patient is [id number] female admitted for severe bradycardia found to have complete heart block underwent implantation of a pacemaker patient is cleared from cardiology perspective patient ideally need to go to rehabilitation but declined to go to rehab patient will go home with home care. Patient does have COPD uses 2 L of oxygen C Stan at her baseline will not require any systemic steroids at this time. Patient is presently hemodynamically stable. PHYSICAL EXAMINATION: GENERAL: The patient is alert and oriented x3, not in any acute distress. Obese HEENT: Pupils are round and equally reacting to light. EOMI. No scleral icterus. No conjunctival pallor. Normocephalic, atraumatic. No pharyngeal erythema. No thyromegaly. CARDIOVASCULAR: S1 and S2 present. No murmurs, rubs, or gallops. PULMONARY: Chest is clear to auscultation, no wheezing or crackles. ABDOMEN: Soft, nontender, nondistended, normoactive bowel sounds. No palpable organomegaly. MUSCULOSKELETAL: No joint swelling or deformity. EXTREMITIES: No cyanosis, clubbing, or pedal edema. NEUROLOGICAL: Gross neurological examination did not reveal any focal deficits. SKIN: No rashes. Bradycardia third-degree heart block status post pacemaker placement Dizziness and presyncope, secondary to above Generalized weakness, mostly secondary to above, physical therapy at home Hyperglycemia with uncontrolled diabetes type 2 History of coronary artery disease status post CABG and valve replacement Obstructive sleep apnea on CPAP at home Morbid obesity COPD/asthma History of CVA/TIA acute kidney injury most likely prerenal Hyperlipidemia Hypothyroidism Parkinsonism Hypoalbuminemia 2.9, not mal nourished Plan - Discharge Summary Discharge Rx Participant: No New Discharge Prescriptions: Continue Montelukast [Singulair] 10 mg PO HS Metoprolol Tartrate [Lopressor] 50 mg PO BID Lovastatin [Mevacor] 40 mg PO HS Levothyroxine Sodium [Synthroid] 125 mcg PO MOTUWETHFRSA Ergocalciferol (Vitamin D2) [Vitamin D2] 50,000 unit PO MURRAY Dulaglutide [Trulicity] 0.75 mg SQ TH buPROPion [Wellbutrin] 75 mg PO DAILY Multivitamins, Thera [Multivitamin (formulary)] 1 tab PO DAILY Ipratropium-Albuterol Nebulize [Duoneb 0.5 mg-3 mg/3 ml Soln] 3 ml INHALATION RT-BID HYDROcodone/APAP 5-325MG [[place] 5-325] 1 tab PO Q6HR PRN PRN Reason: Pain Budesonide [Pulmicort] 0.5 mg INHALATION RT-BID Humulin R U-500 Vial 0.01 units SQ-PUMP CONTINUOUS Xolair (Unknown Dose) 1 dose SQ Q14D Pregabalin [Lyrica] 100 mg PO BID Furosemide [Lasix] 20 mg PO DAILY Discharge Medication List Budesonide [Pulmicort] 0.5 mg INHALATION RT-BID 09/11/18 [History] Dulaglutide [Trulicity] 0.75 mg SQ TH 09/11/18 [History] Ergocalciferol (Vitamin D2) [Vitamin D2] 50,000 unit PO MURRAY 09/11/18 [History] Furosemide [Lasix] 20 mg PO DAILY 09/11/18 [History] HYDROcodone/APAP 5-325MG [[place] 5-325] 1 tab PO Q6HR PRN 09/11/18 [History] Humulin R U-500 Vial 0.01 units SQ-PUMP CONTINUOUS 09/11/18 [History] Ipratropium-Albuterol Nebulize [Duoneb 0.5 mg-3 mg/3 ml Soln] 3 ml INHALATION RT -BID 09/11/18 [History] Levothyroxine Sodium [Synthroid] 125 mcg PO MOTUWETHFRSA 09/11/18 [History] Lovastatin [Mevacor] 40 mg PO HS 09/11/18 [History] Metoprolol Tartrate [Lopressor] 50 mg PO BID 09/11/18 [History] Montelukast [Singulair] 10 mg PO HS 09/11/18 [History] Multivitamins, Thera [Multivitamin (formulary)] 1 tab PO DAILY 09/11/18 [History ] Pregabalin [Lyrica] 100 mg PO BID 09/11/18 [History] Xolair (Unknown Dose) 1 dose SQ Q14D 09/11/18 [History] buPROPion [Wellbutrin] 75 mg PO DAILY 09/11/18 [History] Follow up Appointment(s)/Referral(s): Italia Washington MD [Primary Care Provider] - 09/19/18 2:00 pm () Mehdi Aguilera MD [STAFF PHYSICIAN] - 09/23/18 3:30 pm (Sunday -device check and doctors appointment) Patient Instructions/Handouts: Pacemaker (DC) Discharge Disposition: HOME WITH HOME HEALTH SERVICES
[2018-09-16 11:50] VITALS: PULSE 72
[2018-09-16 12:06] LABS: Glucose,Whole Blood 306 mg/dL (75-99)
--- NOTE | 2018-09-16 12:16 | P.PN ---
Subjective Progress Note Date: 09/16/18 This is a 72-year-old female who was transferred here from [facility], patient had intermittent complete heart block and underwent implantation of a permanent pacemaker by Dr. Zhou. She was seen and examined on the telemetry unit today, hemodynamically stable. 09/16/2018 Patient was seen and examined this morning, sitting up in the chair at bedside. Hemodynamically stable. No complaints. Objective - Vital Signs Vital signs: Vital Signs Temp 97.7 F 09/16/18 08:00 Pulse 72 09/16/18 11:49 Resp 20 09/16/18 08:00 BP 127/58 09/16/18 08:00 Pulse Ox 98 09/16/18 08:00 Intake & Output 09/15/18 09/16/18 09/16/18 18:59 06:59 18:59 Intake Total 220 120 240 Output Total 100 900 400 Balance 120 -780 -160 Weight 119.8 kg Intake: Oral 220 120 240 Output: Urine 100 900 400 Other: Voiding Method Indwelling Catheter Toilet Toilet # Voids 4 ABP, PAP, CO, CI - Last Documented Arterial Blood Pressure 125/48 - Exam PHYSICAL EXAMINATION: GENERAL: 72-year-old female in no acute distress at the time of my examination HEENT: Head is atraumatic, normocephalic. Pupils equal, round. Sclera anicteric. Conjunctiva are clear. Mucous membranes of the mouth are moist. Neck is supple. There is no elevated jugular venous pressure.] bruit is heard. HEART EXAMINATION: Heart S1, S2 normal. No murmur or gallop heard. CHEST EXAMINATION: Lungs are clear to auscultation and precussion. No chest wall tenderness is noted on palpation or with deep breathing. Pacemaker dressing dry and intact ABDOMEN: Soft, nontender. Bowel sounds are heard. No organomegaly noted. EXTREMITIES: 2+ peripheral pulses with no evidence of peripheral edema and no calf tenderness noted. NEUROLOGIC patient is awake, alert and oriented ?-3. . - Labs CBC & Chem 7: 09/16/18 06:42 09/16/18 06:42 Labs: Abnormal Lab Results - Last 24 Hours (Table) 09/15/18 09/15/18 09/16/18 Range/Units 16:53 20:18 05:52 RBC (3.80-5.40) m/uL Hgb (11.4-16.0) gm/dL Hct (34.0-46.0) % Lymphocytes # (1.0-4.8) k/uL Chloride (98-107) mmol/L Carbon Dioxide (22-30) mmol/L BUN (7-17) mg/dL Glucose (74-99) mg/dL POC Glucose (mg/dL) 231 H 297 H 223 H (75-99) mg/dL Calcium (8.4-10.2) mg/dL 09/16/18 09/16/18 09/16/18 Range/Units 06:42 06:42 11:41 RBC 3.51 L (3.80-5.40) m/uL Hgb 10.5 L (11.4-16.0) gm/dL Hct 32.1 L (34.0-46.0) % Lymphocytes # 0.9 L (1.0-4.8) k/uL Chloride 96 L (98-107) mmol/L Carbon Dioxide 38 H (22-30) mmol/L BUN 19 H (7-17) mg/dL Glucose 204 H (74-99) mg/dL POC Glucose (mg/dL) 306 H (75-99) mg/dL Calcium 8.1 L (8.4-10.2) mg/dL Microbiology - Last 24 Hours (Table) 09/13/18 07:50 Gram Stain - Final Sputum Sputum Culture - Final Assessment and Plan Plan: Assessment and plan #1 status post implantation of a permanent pacemaker for intermittent third- degree heart block #2 postoperative respiratory failure secondary to COPD #3 diabetes #4 sleep apnea #5 Parkinson's #6 history of coronary artery disease or prior bypass and valve replacement to the aortic valve Plan We will continue the patient on her current medications. Patient may be discharged from cardiology standpoint, we'll make her a follow-up appointment to see Dr. Aguilera in the office post discharge. DNP note has been reviewed, I agree with a documented findings and plan of care. Patient was seen and examined.
== END 2018-09-16 13:50 | disposition home health service (06) | DRG 242 ==
LOC: 3SCARD 10:29 → 2SICU 09-12 17:10 → 3SCARD 09-15 02:41
PROVIDERS: ADMIT Internal Medicine; ATTEND Internal Medicine
PROC: 0JH606Z Insertion of Pacemaker, Dual Chamber into Chest Subcutaneous Tissue and Fascia, Open Approach (ICD-10-PCS; 2018-09-12)
PROC: 02H63JZ Insertion of Pacemaker Lead into Right Atrium, Percutaneous Approach (ICD-10-PCS; 2018-09-12)
PROC: 02HK3JZ Insertion of Pacemaker Lead into Right Ventricle, Percutaneous Approach (ICD-10-PCS; 2018-09-12)
PROC: 0BH17EZ Insertion of Endotracheal Airway into Trachea, Via Natural or Artificial Opening (ICD-10-PCS; 2018-09-12)
PROC: 5A1935Z Respiratory Ventilation, Less than 24 Consecutive Hours (ICD-10-PCS; principal; 2018-09-12 15:30)
PROC: 5A09357 Assistance with Respiratory Ventilation, Less than 24 Consecutive Hours, Continuous Positive Airway Pressure (ICD-10-PCS; 2018-09-13)
DX: I44.2 Atrioventricular block, complete (principal); J95.822 Acute and chronic postprocedural respiratory failure; Z68.43 Body mass index [BMI] 50.0-59.9, adult; I50.20 Unspecified systolic (congestive) heart failure; J45.901 Unspecified asthma with (acute) exacerbation; N17.9 Acute kidney failure, unspecified; E03.9 Hypothyroidism, unspecified; E11.65 Type 2 diabetes mellitus with hyperglycemia; E66.01 Morbid (severe) obesity due to excess calories; E78.5 Hyperlipidemia, unspecified; F32.9 Major depressive disorder, single episode, unspecified; G20 Parkinson's disease; G47.33 Obstructive sleep apnea (adult) (pediatric); I25.10 Atherosclerotic heart disease of native coronary artery without angina pectoris; I35.9 Nonrheumatic aortic valve disorder, unspecified; I11.0 Hypertensive heart disease with heart failure; J44.9 Chronic obstructive pulmonary disease, unspecified; Z79.4 Long term (current) use of insulin; Z79.899 Other long term (current) drug therapy; Z86.73 Personal history of transient ischemic attack (TIA), and cerebral infarction without residual deficits; Z90.710 Acquired absence of both cervix and uterus; Z95.1 Presence of aortocoronary bypass graft; Z95.2 Presence of prosthetic heart valve; Z99.81 Dependence on supplemental oxygen; Z79.890 Hormone replacement therapy; Z96.653 Presence of artificial knee joint, bilateral; Z88.1 Allergy status to other antibiotic agents; Z88.0 Allergy status to penicillin; R53.1 Weakness
CPT/HCPCS: 33208; 71045; 80048; 81001; 82805; 83036; 83735; 84100; 84132; 85025; 87070; 87086; 87205; 93005; 94002; 94003; 94640

== ENCOUNTER 2018-12-25 15:36 | Emergency (ER) | payer MEDICARE, OTHER ==
[2018-12-25 15:48] LABS: Glucose,Whole Blood 188 mg/dL (75-99)
--- NOTE | 2018-12-25 16:13 | ED ---
Weakness HPI - General Stated complaint: Not feeling well Time Seen by Provider: 12/25/18 15:36 Source: patient, family, RN notes reviewed - History of Present Illness Initial comments: This is a 73-year-old female who was brought in by EMS with complaints of feeling sick for the past 5 days she started with nausea vomiting decreased oral intake. She is diabetic and has been having fluctuations in her blood sugar. Family's been managing this. She did have diarrhea for about 1 day but a day or 2 after this started. She feels generally weak she also fell last night she apparently bent over in her wheelchair and fell forward she denies any head neck or back pain at this time. She does demonstrate some slightly slurred speech. She denies any focal deficits no headache or other symptoms MD Complaint: generalized weakness - Related Data Home Medications Medication Instructions Recorded Confirmed Budesonide [Pulmicort] 0.5 mg INHALATION RT-BID 09/11/18 09/11/18 Dulaglutide [Trulicity] 0.75 mg SQ TH 09/11/18 09/11/18 Ergocalciferol (Vitamin D2) 50,000 unit PO MURRAY 09/11/18 09/11/18 [Vitamin D2] Furosemide [Lasix] 20 mg PO DAILY 09/11/18 09/11/18 HYDROcodone/APAP 5-325MG [[place] 1 tab PO Q6HR PRN 09/11/18 09/11/18 5-325] Humulin R U-500 Vial 0.01 units SQ-PUMP CONTINUOUS 09/11/18 09/11/18 Ipratropium-Albuterol Nebulize 3 ml INHALATION RT-BID 09/11/18 09/11/18 [Duoneb 0.5 mg-3 mg/3 ml Soln] Levothyroxine Sodium [Synthroid] 125 mcg PO MOTUWETHFRSA 09/11/18 09/11/18 Lovastatin [Mevacor] 40 mg PO HS 09/11/18 09/11/18 Metoprolol Tartrate [Lopressor] 50 mg PO BID 09/11/18 09/11/18 Montelukast [Singulair] 10 mg PO HS 09/11/18 09/11/18 Multivitamins, Thera [Multivitamin 1 tab PO DAILY 09/11/18 09/11/18 (formulary)] Pregabalin [Lyrica] 100 mg PO BID 09/11/18 09/11/18 Xolair (Unknown Dose) 1 dose SQ Q14D 09/11/18 09/11/18 buPROPion [Wellbutrin] 75 mg PO DAILY 09/11/18 09/11/18 Allergies Allergy/AdvReac Type Severity Reaction Status Date / Time codeine Allergy Unknown Verified 09/11/18 11:04 Penicillins Allergy Unknown Verified 09/11/18 11:04 Review of Systems ROS Statement: Those systems with pertinent positive or pertinent negative responses have been documented in the HPI. ROS Other: All systems not noted in ROS Statement are negative. Past Medical History Past Medical History: Asthma, Coronary Artery Disease (CAD), COPD, Diabetes Mellitus, Hyperlipidemia, Renal Disease, Sleep Apnea/CPAP/BIPAP, Thyroid Disorder Additional Past Medical History / Comment(s): home O2 at 2L, parkinsons, thrombocytopenia, third degree heart block, cardiogenic shock, syncope History of Any Multi-Drug Resistant Organisms: None Reported Past Surgical History: Cholecystectomy, Coronary Bypass/CABG, Hysterectomy, Joint Replacement Additional Past Surgical History / Comment(s): bilateral knee Past Anesthesia/Blood Transfusion Reactions: No Reported Reaction Past Psychological History: Depression Smoking Status: Never smoker Past Drug Use History: None Reported - Past Family History Mother History Unknown: Yes Father History Unknown: Yes General Exam - General Exam Comments Initial Comments: This is a well-developed well-nourished awake alert oriented 3 female who does demonstrate slightly slurred speech but no facial asymmetry Limitations: physical limitation General appearance: alert, in no apparent distress Head exam: Present: atraumatic, normocephalic, normal inspection Eye exam: Present: normal appearance, PERRL, EOMI. Absent: scleral icterus, conjunctival injection, periorbital swelling ENT exam: Present: mucous membranes dry Neck exam: Present: normal inspection, full ROM, other (No stridor JVD or bruits). Absent: tenderness, meningismus, lymphadenopathy Respiratory exam: Present: normal lung sounds bilaterally. Absent: respiratory distress, wheezes, rales, rhonchi, stridor Cardiovascular Exam: Present: regular rate, normal rhythm, normal heart sounds. Absent: systolic murmur, diastolic murmur, rubs, gallop, clicks GI/Abdominal exam: Present: soft. Absent: bruit, pulsatile mass Neurological exam: Present: alert Psychiatric exam: Present: normal affect, normal mood Skin exam: Present: warm, pallor (Exam stopped at this point the patient's family has remained that the patient be discharged to [facility].) Medical Decision Making - Medical Decision Making The exam was truncated at the request of family members who wanted the patient transferred to [facility]. The patient will sign out AGAINST MEDICAL ADVICE the family is in agreement with this. They agreed to take responsibility for inpatient care and a potential adverse outcomes. - Lab Data Lab Results 12/25/18 Range/Units 15:44 POC Glucose (mg/dL) 188 H (75-99) mg/dL POC Glu Material Reclaimer ID Grecia Zuniga Disposition Clinical Impression: Weakness, Failure to thrive, Fall, History of pacemaker Disposition: Left Against Medical Advice Referrals: Italia Washington MD [Primary Care Provider] - 1-2 days
[2018-12-25 16:17] VITALS: BP 131/67; PULSE 84; RESP 18; TEMP 97
== END 2018-12-25 16:23 | disposition left against medical advice (07) ==
LOC: EC 15:36
DX: R53.1 Weakness (principal); R62.7 Adult failure to thrive; R19.7 Diarrhea, unspecified; R47.81 Slurred speech; R11.2 Nausea with vomiting, unspecified; I25.10 Atherosclerotic heart disease of native coronary artery without angina pectoris; J44.9 Chronic obstructive pulmonary disease, unspecified; E11.9 Type 2 diabetes mellitus without complications; E78.5 Hyperlipidemia, unspecified; E07.9 Disorder of thyroid, unspecified; G47.30 Sleep apnea, unspecified; F32.9 Major depressive disorder, single episode, unspecified; Z90.49 Acquired absence of other specified parts of digestive tract; Z90.710 Acquired absence of both cervix and uterus; Z95.0 Presence of cardiac pacemaker; Z95.1 Presence of aortocoronary bypass graft; Z96.653 Presence of artificial knee joint, bilateral; Z99.89 Dependence on other enabling machines and devices; Z79.84 Long term (current) use of oral hypoglycemic drugs; Z79.51 Long term (current) use of inhaled steroids; Z79.890 Hormone replacement therapy; Z79.899 Other long term (current) drug therapy; Z88.0 Allergy status to penicillin; Z88.5 Allergy status to narcotic agent
CPT/HCPCS: 36415; 99284

== ENCOUNTER 2018-12-25 16:37 | Observation (INO) | payer MEDICARE, OTHER ==
[2018-12-25] MEDS ORDERED: SODIUM CHLORIDE 0.9% 1,000 ML IV STA ×2 (17:05)
--- NOTE | 2018-12-25 17:09 | ED ---
Weakness HPI - General Chief complaint: Weakness Stated complaint: Not feeling well Time Seen by Provider: 12/25/18 16:50 Source: patient, family, EMS, RN notes reviewed Mode of arrival: EMS - History of Present Illness Initial comments: This is a 73-year-old female who just left AGAINST MEDICAL ADVICE but now is back at her request who initially presented with complaints of generalized weakness. She had the onset about 5 days ago of nausea and vomiting with diarrhea lasting for about a day 22 days after the episode began. She does states she's had decreased oral intake also. She states been so weak that she leaned forward out of her wheelchair last night and fell over. She denies any pain or head neck or other issues with respect any injuries from this event. No cough or phlegm production no dysuria no hematuria. Patient does demonstrate some slurring of speech but she does not have any teeth. Her significant other states that he believes this is normal speech pattern for her. MD Complaint: generalized weakness - Related Data Home Medications Medication Instructions Recorded Confirmed Budesonide [Pulmicort] 0.5 mg INHALATION RT-BID 09/11/18 12/25/18 Dulaglutide [Trulicity] 0.75 mg SQ TH 09/11/18 12/25/18 Furosemide [Lasix] 20 mg PO DAILY 09/11/18 12/25/18 HYDROcodone/APAP 5-325MG [[place] 1 tab PO DAILY PRN 09/11/18 12/25/18 5-325] Humulin R U-500 Vial 0.01 units SQ-PUMP CONTINUOUS 09/11/18 12/25/18 Levothyroxine Sodium [Synthroid] 125 mcg PO DAILY 09/11/18 12/25/18 Lovastatin [Mevacor] 40 mg PO HS 09/11/18 12/25/18 Metoprolol Tartrate [Lopressor] 50 mg PO BID 09/11/18 12/25/18 Montelukast [Singulair] 10 mg PO HS 09/11/18 12/25/18 Pregabalin [Lyrica] 100 mg PO BID 09/11/18 12/25/18 Xolair (Unknown Dose) 1 dose SQ Q14D 09/11/18 12/25/18 buPROPion [Wellbutrin] 75 mg PO DAILY 09/11/18 12/25/18 Allopurinol [Zyloprim] 100 mg PO DAILY 12/25/18 12/25/18 Clobetasol Propionate [Temovate 1 applic TOPICAL TID PRN 12/25/18 12/25/18 0.05% Cream] Ipratropium Nebulized [Atrovent 0.5 mg INHALATION RT-BID 12/25/18 12/25/18 Nebulized 0.2 MG/ML] Nystatin [Nystop] 1 applic TOPICAL TID PRN 12/25/18 12/25/18 Allergies Allergy/AdvReac Type Severity Reaction Status Date / Time codeine Allergy Unknown Verified 12/25/18 18:09 Penicillins Allergy Unknown Verified 12/25/18 18:09 Review of Systems ROS Statement: Those systems with pertinent positive or pertinent negative responses have been documented in the HPI. ROS Other: All systems not noted in ROS Statement are negative. Past Medical History Past Medical History: Asthma, Coronary Artery Disease (CAD), COPD, Diabetes Mellitus, Hyperlipidemia, Renal Disease, Sleep Apnea/CPAP/BIPAP, Thyroid Disorder Additional Past Medical History / Comment(s): home O2 at 2L, parkinsons, thrombocytopenia, third degree heart block, cardiogenic shock, syncope History of Any Multi-Drug Resistant Organisms: None Reported Past Surgical History: Cholecystectomy, Coronary Bypass/CABG, Hysterectomy, Joint Replacement Additional Past Surgical History / Comment(s): bilateral knee Past Anesthesia/Blood Transfusion Reactions: No Reported Reaction Past Psychological History: Depression Smoking Status: Never smoker Past Drug Use History: None Reported - Past Family History Mother History Unknown: Yes Father History Unknown: Yes General Exam - General Exam Comments Initial Comments: This a well-developed obese female who is awake alert oriented 3 General appearance: alert, in no apparent distress Head exam: Present: atraumatic, normocephalic, normal inspection Eye exam: Present: normal appearance, PERRL, EOMI. Absent: scleral icterus, conjunctival injection, periorbital swelling ENT exam: Present: mucous membranes dry Neck exam: Present: normal inspection. Absent: tenderness, meningismus, lymphadenopathy Respiratory exam: Present: normal lung sounds bilaterally. Absent: respiratory distress, wheezes, rales, rhonchi, stridor Cardiovascular Exam: Present: regular rate, normal rhythm, normal heart sounds. Absent: systolic murmur, diastolic murmur, rubs, gallop, clicks GI/Abdominal exam: Present: soft, normal bowel sounds. Absent: distended, tenderness, guarding, rebound, rigid Extremities exam: Present: normal inspection, full ROM, normal capillary refill. Absent: tenderness, pedal edema, joint swelling, calf tenderness Back exam: Present: normal inspection Neurological exam: Present: alert, oriented X3, CN II-XII intact Psychiatric exam: Present: normal affect, normal mood Skin exam: Present: warm, dry, intact, normal color. Absent: rash Course Vital Signs 12/25/18 16:41 Temperature 98.2 F Pulse Rate 72 Respiratory 18 Rate Blood Pressure 127/71 O2 Sat by Pulse 99 Oximetry EKG Findings - EKG Results: EKG: interpreted by ERMD (Sinus rhythm first-degree AV block occasional PVCs rate was 71 [place] interval 328 QRS 194 QT since QTC 464/504) Medical Decision Making - Medical Decision Making Patient is still feeling weak she was noted have a low blood sugar. She will be admitted I did discuss case with Dr. Garrett. - Lab Data Result diagrams: 12/25/18 17:20 12/25/18 17:20 Lab Results 12/25/18 12/25/18 12/25/18 Range/Units 17:20 17:20 17:20 WBC 6.2 (3.8-10.6) k/uL RBC 4.45 (3.80-5.40) m/uL Hgb 12.9 (11.4-16.0) gm/dL Hct 38.7 (34.0-46.0) % MCV 87.1 (80.0-100.0) fL MCH 29.0 (25.0-35.0) pg MCHC 33.3 (31.0-37.0) g/dL RDW 14.9 (11.5-15.5) % Plt Count 130 L (150-450) k/uL Neutrophils % 55 % Lymphocytes % 29 % Monocytes % 9 % Eosinophils % 2 % Basophils % 1 % Neutrophils # 3.4 (1.3-7.7) k/uL Lymphocytes # 1.8 (1.0-4.8) k/uL Monocytes # 0.6 (0-1.0) k/uL Eosinophils # 0.1 (0-0.7) k/uL Basophils # 0.0 (0-0.2) k/uL Sodium 142 (137-145) mmol/L Potassium 3.9 (3.5-5.1) mmol/L Chloride 99 (98-107) mmol/L Carbon Dioxide 36 H (22-30) mmol/L Anion Gap 7 mmol/L BUN 12 (7-17) mg/dL Creatinine 0.85 (0.52-1.04) mg/dL Est GFR (CKD-EPI)AfAm 80 (>60 ml/min/1.73 sqM) Est GFR (CKD-EPI)NonAf 69 (>60 ml/min/1.73 sqM) Glucose 124 H (74-99) mg/dL POC Glucose (mg/dL) (75-99) mg/dL POC Glu Green Building Architect ID Plasma Lactic Acid [place] (0.7-2.0) mmol/L Calcium 8.9 (8.4-10.2) mg/dL Magnesium 1.8 (1.6-2.3) mg/dL Total Bilirubin 1.4 H (0.2-1.3) mg/dL AST 34 (14-36) U/L ALT 24 (9-52) U/L Alkaline Phosphatase 65 (38-126) U/L Total Creatine Kinase 75 (30-135) U/L CK-MB (CK-2) 1.2 (0.0-2.4) ng/mL CK-MB (CK-2) Rel Index 1.6 Troponin I <0.012 (0.000-0.034) ng/mL Total Protein 6.5 (6.3-8.2) g/dL Albumin 3.6 (3.5-5.0) g/dL Amylase 49 (30-110) U/L Lipase 146 (23-300) U/L Urine Color Urine Appearance (Clear) Urine pH (5.0-8.0) Ur Specific [place] (1.001-1.035) Urine Protein (Negative) Urine Glucose (UA) (Negative) Urine Ketones (Negative) Urine Blood (Negative) Urine Nitrite (Negative) Urine Bilirubin (Negative) Urine Urobilinogen (<2.0) mg/dL Ur Leukocyte Esterase (Negative) Urine WBC (0-5) /hpf Ur Squamous Epith Cells (0-4) /hpf Urine Mucus (None) /hpf Influenza Type A RNA (Not Detectd) Influenza Type B (PCR) (Not Detectd) 12/25/18 12/25/18 12/25/18 Range/Units 17:20 19:00 19:29 WBC (3.8-10.6) k/uL RBC (3.80-5.40) m/uL Hgb (11.4-16.0) gm/dL Hct (34.0-46.0) % MCV (80.0-100.0) fL MCH (25.0-35.0) pg MCHC (31.0-37.0) g/dL RDW (11.5-15.5) % Plt Count (150-450) k/uL Neutrophils % % Lymphocytes % % Monocytes % % Eosinophils % % Basophils % % Neutrophils # (1.3-7.7) k/uL Lymphocytes # (1.0-4.8) k/uL Monocytes # (0-1.0) k/uL Eosinophils # (0-0.7) k/uL Basophils # (0-0.2) k/uL Sodium (137-145) mmol/L Potassium (3.5-5.1) mmol/L Chloride (98-107) mmol/L Carbon Dioxide (22-30) mmol/L Anion Gap mmol/L BUN (7-17) mg/dL Creatinine (0.52-1.04) mg/dL Est GFR (CKD-EPI)AfAm (>60 ml/min/1.73 sqM) Est GFR (CKD-EPI)NonAf (>60 ml/min/1.73 sqM) Glucose (74-99) mg/dL POC Glucose (mg/dL) (75-99) mg/dL POC Glu Green Building Architect ID Plasma Lactic Acid Laron 2.0 (0.7-2.0) mmol/L Calcium (8.4-10.2) mg/dL Magnesium (1.6-2.3) mg/dL Total Bilirubin (0.2-1.3) mg/dL AST (14-36) U/L ALT (9-52) U/L Alkaline Phosphatase (38-126) U/L Total Creatine Kinase (30-135) U/L CK-MB (CK-2) (0.0-2.4) ng/mL CK-MB (CK-2) Rel Index Troponin I (0.000-0.034) ng/mL Total Protein (6.3-8.2) g/dL Albumin (3.5-5.0) g/dL Amylase (30-110) U/L Lipase (23-300) U/L Urine Color Yellow Urine Appearance Cloudy H (Clear) Urine pH 6.0 (5.0-8.0) Ur Specific [place] 1.012 (1.001-1.035) Urine Protein Negative (Negative) Urine Glucose (UA) Negative (Negative) Urine Ketones Negative (Negative) Urine Blood Negative (Negative) Urine Nitrite Negative (Negative) Urine Bilirubin Negative (Negative) Urine Urobilinogen 4.0 (<2.0) mg/dL Ur Leukocyte Esterase Negative (Negative) Urine WBC 3 (0-5) /hpf Ur Squamous Epith Cells 4 (0-4) /hpf Urine Mucus Rare H (None) /hpf Influenza Type A RNA Not Detected (Not Detectd) Influenza Type B (PCR) Not Detected (Not Detectd) 12/25/18 Range/Units 19:44 WBC (3.8-10.6) k/uL RBC (3.80-5.40) m/uL Hgb (11.4-16.0) gm/dL Hct (34.0-46.0) % MCV (80.0-100.0) fL MCH (25.0-35.0) pg MCHC (31.0-37.0) g/dL RDW (11.5-15.5) % Plt Count (150-450) k/uL Neutrophils % % Lymphocytes % % Monocytes % % Eosinophils % % Basophils % % Neutrophils # (1.3-7.7) k/uL Lymphocytes # (1.0-4.8) k/uL Monocytes # (0-1.0) k/uL Eosinophils # (0-0.7) k/uL Basophils # (0-0.2) k/uL Sodium (137-145) mmol/L Potassium (3.5-5.1) mmol/L Chloride (98-107) mmol/L Carbon Dioxide (22-30) mmol/L Anion Gap mmol/L BUN (7-17) mg/dL Creatinine (0.52-1.04) mg/dL Est GFR (CKD-EPI)AfAm (>60 ml/min/1.73 sqM) Est GFR (CKD-EPI)NonAf (>60 ml/min/1.73 sqM) Glucose (74-99) mg/dL POC Glucose (mg/dL) 61 L (75-99) mg/dL POC Glu Green Building Architect ID Trupti Ingram Plasma Lactic Acid [place] (0.7-2.0) mmol/L Calcium (8.4-10.2) mg/dL Magnesium (1.6-2.3) mg/dL Total Bilirubin (0.2-1.3) mg/dL AST (14-36) U/L ALT (9-52) U/L Alkaline Phosphatase (38-126) U/L Total Creatine Kinase (30-135) U/L CK-MB (CK-2) (0.0-2.4) ng/mL CK-MB (CK-2) Rel Index Troponin I (0.000-0.034) ng/mL Total Protein (6.3-8.2) g/dL Albumin (3.5-5.0) g/dL Amylase (30-110) U/L Lipase (23-300) U/L Urine Color Urine Appearance (Clear) Urine pH (5.0-8.0) Ur Specific [place] (1.001-1.035) Urine Protein (Negative) Urine Glucose (UA) (Negative) Urine Ketones (Negative) Urine Blood (Negative) Urine Nitrite (Negative) Urine Bilirubin (Negative) Urine Urobilinogen (<2.0) mg/dL Ur Leukocyte Esterase (Negative) Urine WBC (0-5) /hpf Ur Squamous Epith Cells (0-4) /hpf Urine Mucus (None) /hpf Influenza Type A RNA (Not Detectd) Influenza Type B (PCR) (Not Detectd) - EKG Data -: EKG Interpreted by Me - Radiology Data Radiology results: report reviewed (Uses no acute findings), image reviewed Disposition Clinical Impression: Gastroenteritis, Dehydration, Weakness, Failure to thrive Disposition: ADMITTED IP TO THIS HOSP Condition: Stable Referrals: Italia Washington MD [Primary Care Provider] - 1-2 days
[2018-12-25 17:50] LABS: Basophils % (A) 1 %; Eosinophils # (A) 0.1 k/uL (0-0.7); Eosinophils % (A) 2 %; HCT 38.7 % (34.0-46.0); HGB 12.9 gm/dL (11.4-16.0); Lymphocytes # (A) 1.8 k/uL (1.0-4.8); Lymphocytes % (A) 29 %; MCHC 33.3 g/dL (31.0-37.0); MCV 87.1 fL (80.0-100.0); Mean Platelet Volume 7.3; Monocytes # (A) 0.6 k/uL (0-1.0); Monocytes % (A) 9 %; Neutrophils # (A) 3.4 k/uL (1.3-7.7); Neutrophils % (A) 55 %; Platelet Count 130 k/uL (150-450); RBC 4.45 m/uL (3.80-5.40); RDW 14.9 % (11.5-15.5); WBC 6.2 k/uL (3.8-10.6)
[2018-12-25 18:02] LABS: Albumin 3.6 g/dL (3.5-5.0); Calcium 8.9 mg/dL (8.4-10.2); Magnesium 1.8 mg/dL (1.6-2.3); Potassium 3.9 mmol/L (3.5-5.1); Total Bilirubin 1.4 mg/dL (0.2-1.3); Total Protein 6.5 g/dL (6.3-8.2)
[2018-12-25 18:06] LABS: Creatine Kinase 75 U/L (30-135)
[2018-12-25 18:18] LABS: Creatine Kinase MB 1.2 ng/mL (0.0-2.4); Troponin I <0.012 ng/mL (0.000-0.034)
--- NOTE | 2018-12-25 18:23 | CT ---
EXAMINATION: CT brain wo con DATE AND TIME: 12/25/2018 6:18 PM CLINICAL INDICATION: PHH; Pain TECHNIQUE: Standard departmental protocol.; 1044.4; COMPARISON: None. FINDINGS: The calvarium is intact. There is no intracranial hemorrhage. There is no intracranial mass or mass effect. No definite new intra-axial or extra-axial attenuation defect. The paranasal sinuses, middle ear cavities, and mastoid sinus air cells are clear. The orbits are unremarkable. IMPRESSION: NO ACUTE PROCESS.
--- NOTE | 2018-12-25 18:25 | XR ---
EXAMINATION: XR chest 2V DATE AND TIME: 12/25/2018 6:18 PM CLINICAL INDICATION: PHH; cough TECHNIQUE: Departmental protocol COMPARISON: 09/14/2018 FINDINGS: The overlying soft tissues are prominent. The lungs appear to be clear as seen. The pleural spaces are negative. EKG leads, cardiac pacemaker, sternal sutures, and mediastinal clips noted. The cardiac silhouette is moderately enlarged. The remainder of the mediastinal silhouette is unremarkable. The skeletal structures and soft tissues are negative for acute findings. IMPRESSION: NO DEFINITE ACUTE PROCESS.
[2018-12-25 19:45] LABS: Appearance,Urine Cloudy (Clear); Bilirubin,Urine Negative (Negative); Blood,Urine Negative (Negative); Color,Urine Yellow; Glucose,Urine (UA) Negative (Negative); Ketones,Urine Negative (Negative); Leukocyte Esterase,Urine Negative (Negative); Mucus,Urine Rare /hpf; Nitrite,Urine Negative (Negative); Protein,Urine Negative (Negative); Specific Gravity,Urine 1.012 (1.001-1.035); Squamous Epithelial Cell,Urine 4 /hpf (0-4)
[2018-12-25 19:47] LABS: Glucose,Whole Blood 61 mg/dL (75-99)
[2018-12-25 20:45] LABS: Glucose,Whole Blood 73 mg/dL (75-99)
[2018-12-25] MEDS ORDERED: NALOXONE 0.4 MG/ML 1 ML VIAL IV PRN (20:46)
[2018-12-25] MEDS ORDERED: NYSTATIN 100,000 UNIT/GM POWD 15 GM TOPICAL PRN (20:48)
[2018-12-25] MEDS ORDERED: HYDROcodone/APAP 5-325MG 1 EACH TAB PO PRN (20:48)
[2018-12-25] MEDS ORDERED: CLOBETASOL PROP 0.05% CR 15GM TOPICAL PRN (20:48)
[2018-12-25] MEDS ORDERED: INSULIN REGULAR SQ-PUMP SCH (21:00)
[2018-12-25 21:43] LABS: Glucose,Whole Blood 101 mg/dL (75-99)
[2018-12-25] MEDS ORDERED: ONDANSETRON 4 MG/2 ML VIAL IVP PRN (23:31)
[2018-12-25] MEDS ORDERED: IPRATROPIUM-ALBUTEROL 3 ML NEB INHALATION PRN (23:31)
[2018-12-25] MEDS: INSULIN ASPART (NovoLOG) 100 UNIT/ML VIAL SQ SCH (23:34)
[2018-12-25] MEDS: METOPROLOL TARTRATE 50 MG TAB PO SCH (23:34)
[2018-12-25] MEDS: MONTELUKAST 10 MG TAB PO SCH (23:42)
[2018-12-25] MEDS: ATORVASTATIN 10 MG TAB PO SCH (23:42)
[2018-12-25] MEDS: PREGABALIN 100 MG CAP PO SCH (23:42)
[2018-12-26 03:27] LABS: Glucose,Whole Blood 56 mg/dL (75-99)
[2018-12-26 03:46] LABS: Glucose,Whole Blood 78 mg/dL (75-99)
[2018-12-26 04:41] LABS: Glucose,Whole Blood 137 mg/dL (75-99)
[2018-12-26] MEDS: LEVOTHYROXINE 125 MCG TAB PO SCH (05:51)
[2018-12-26 06:47] LABS: Glucose,Whole Blood 159 mg/dL (75-99)
[2018-12-26] MEDS: PREGABALIN 100 MG CAP PO SCH ×2 (07:23→20:46)
[2018-12-26] MEDS: buPROPion 75 MG TAB PO SCH (07:24)
[2018-12-26] MEDS: ALLOPURINOL 100 MG TAB PO SCH (07:24)
[2018-12-26] MEDS: FUROSEMIDE 20 MG TAB PO SCH (07:24)
[2018-12-26] MEDS: METOPROLOL TARTRATE 50 MG TAB PO SCH ×2 (07:24→20:46)
[2018-12-26] MEDS: BUDESONIDE 0.5 MG/2 ML NEBU INHALATION SCH ×2 (07:56→20:24)
[2018-12-26] MEDS: IPRATROPIUM 0.5 MG/2.5 ML NEBU INHALATION SCH ×2 (07:56→20:24)
[2018-12-26 08:09] LABS: Glucose,Whole Blood 149 mg/dL (75-99)
[2018-12-26] MEDS: INSULIN ASPART (NovoLOG) 100 UNIT/ML VIAL SQ SCH ×4 (09:00→20:46)
[2018-12-26] MEDS ORDERED: NON-FORMULARY DRUG (Dulaglutide [Trulicity] 0.75 MG) SQ SCH (09:00)
--- NOTE | 2018-12-26 09:52 | P.HPIM ---
History of Present Illness Chief Complaint: Fall and weakness This is a 79-year-old female with a past medical history significant for recent pacemaker placement in September 2018 for complete heart block. Patient was discharged home and refused to go to rehab. She comes to the ER for above- mentioned complaints. Patient is alert oriented 3 was having slurry speech but does at baseline as per the significant other was there at the bedside. Patient says that she fell day before yesterday in the evening while trying to lie down in the bed. She said that she lost her balance. She was not feeling any lightheadedness or dizziness at that time. She does know whether she was having chest pain or any racing heart. She says that she is short of breath but no cough. The significant other was not able to lift her up so EMS was called and the PICC the patient up. They didn't come to ER at that time. Next morning that is yesterday the patient was feeling weak and was not able to walk. She thus decided to come to the ER for further evaluation and management. The patient at this time does not complain of any chest pain racing heart, he said that she short of breath but no cough, she doesn't complain of any abdominal pain, she said that she had been having nausea and dry heaving for the last 5 days and not able to eat anything. She does not complain of any diarrhea at this time. She doesn't complain of any itch or rash, no fever no chills, no tingling numbness of his extremities. ER course-EKG shows paced rhythm. Patient vitals were stable. Labwork was done which showed WBC 6.2 hemoglobin 12.9 platelets 1:30 sodium 142 potassium 3.9 BUN 12 creatinine 0.85 lipase 146 troponin less than 0.01. Chest x-ray was done which showed no acute process. Patient was admitted to the hospitalist service a further evaluation and management. Review of Systems All systems: negative Past Medical History Past Medical History: Asthma, Coronary Artery Disease (CAD), COPD, Diabetes Mellitus, Hyperlipidemia, Pneumonia, Renal Disease, Sleep Apnea/CPAP/BIPAP, Thyroid Disorder Additional Past Medical History / Comment(s): home O2 at 2L, parkinsons, thrombocytopenia, third degree heart block, cardiogenic shock, syncope History of Any Multi-Drug Resistant Organisms: None Reported Past Surgical History: Cholecystectomy, Coronary Bypass/CABG, Hysterectomy, Joint Replacement Additional Past Surgical History / Comment(s): bilateral knee, pacemaker place ment Past Anesthesia/Blood Transfusion Reactions: No Reported Reaction Past Psychological History: Depression Smoking Status: Never smoker Past Alcohol Use History: None Reported Past Drug Use History: None Reported - Past Family History Mother History Unknown: Yes Father History Unknown: Yes Medications and Allergies Home Medications Medication Instructions Recorded Confirmed Type Budesonide [Pulmicort] 0.5 mg INHALATION RT-BID 09/11/18 12/25/18 History Dulaglutide [Trulicity] 0.75 mg SQ TH 09/11/18 12/25/18 History Furosemide [Lasix] 20 mg PO DAILY 09/11/18 12/25/18 History HYDROcodone/APAP 5-325MG [[place] 1 tab PO DAILY PRN 09/11/18 12/25/18 History 5-325] Humulin R U-500 Vial 0.01 units SQ-PUMP CONTINUOUS 09/11/18 12/25/18 History Levothyroxine Sodium [Synthroid] 125 mcg PO DAILY 09/11/18 12/25/18 History Lovastatin [Mevacor] 40 mg PO HS 09/11/18 12/25/18 History Metoprolol Tartrate [Lopressor] 50 mg PO BID 09/11/18 12/25/18 History Montelukast [Singulair] 10 mg PO HS 09/11/18 12/25/18 History Pregabalin [Lyrica] 100 mg PO BID 09/11/18 12/25/18 History Xolair (Unknown Dose) 1 dose SQ Q14D 09/11/18 12/25/18 History buPROPion [Wellbutrin] 75 mg PO DAILY 09/11/18 12/25/18 History Allopurinol [Zyloprim] 100 mg PO DAILY 12/25/18 12/25/18 History Clobetasol Propionate [Temovate 1 applic TOPICAL TID PRN 12/25/18 12/25/18 History 0.05% Cream] Ipratropium Nebulized [Atrovent 0.5 mg INHALATION RT-BID 12/25/18 12/25/18 History Nebulized 0.2 MG/ML] Nystatin [Nystop] 1 applic TOPICAL TID PRN 12/25/18 12/25/18 History Allergies Allergy/AdvReac Type Severity Reaction Status Date / Time codeine Allergy Unknown Verified 12/25/18 18:09 Penicillins Allergy Unknown Verified 12/25/18 18:09 Physical Exam Vitals: Vital Signs Temp Pulse Pulse Resp BP BP Pulse Ox 12/26/18 08:07 88 12/26/18 07:56 84 12/26/18 05:40 97.6 F 86 20 137/57 97 12/25/18 23:40 86 20 12/25/18 22:00 96.6 F L 86 20 108/65 99 12/25/18 21:30 97.8 F 80 18 150/80 100 12/25/18 21:20 79 100 12/25/18 21:10 78 100 12/25/18 21:00 86 100 12/25/18 20:50 78 100 12/25/18 20:40 77 100 12/25/18 20:30 75 100 12/25/18 20:20 74 20 100 12/25/18 20:10 75 16 100 12/25/18 20:00 75 18 146/60 100 12/25/18 19:50 78 18 146/60 99 12/25/18 19:40 75 146/60 12/25/18 19:30 81 120/48 99 12/25/18 19:20 78 120/48 12/25/18 19:10 71 120/48 100 12/25/18 19:00 80 20 119/69 99 12/25/18 18:50 74 119/69 99 12/25/18 18:40 119/69 99 12/25/18 18:30 135/55 99 12/25/18 18:20 135/55 95 12/25/18 18:10 135/55 12/25/18 18:00 71 126/61 99 12/25/18 17:50 71 126/61 99 12/25/18 17:40 72 126/61 100 12/25/18 17:30 72 109/81 98 12/25/18 17:20 109/81 12/25/18 17:10 109/81 12/25/18 17:00 152/64 12/25/18 16:57 152/64 100 12/25/18 16:41 98.2 F 72 18 127/71 99 Intake and Output 12/25/18 12/26/18 12/26/18 22:59 06:59 14:59 Intake Total 400 Balance 400 Intake: Intake, IV Titration 400 Amount Sodium Chloride 0.9% 1, 400 000 ml @ 75 mls/hr IV . [id number] STA Rx#:[id number] Other: Voiding Method Bedpan Bedside Commode Diaper Bedpan # Voids 0 2 Weight 120.202 kg On exam, alert and oriented x3. HEENT: Conjunctivae normal. eyes normal. NECK: No JVD. No thyroid enlargement. No LNs CARDIOVASCULAR: S1-S2 positive RESPIRATION: Breath sounds diminished in the bases. No rhonchi or crackles. No bronchial breathing. ABDOMEN: Soft, nontender . No guarding. no masses palpable. No ascites, No hepatosplenomegaly.Bowel sounds heard. LEGS: No edema. no swelling NERVOUS SYSTEM: Cranial N 2-12 grossly normal. Moves all 4 limbs. No focal deficits. patient is having slurry speech which according to the significant other is normal for her she has no teeth. No sensory deficit. No signs of ce rebellar dysfucntion. Skin: no ulcer no rash Results CBC & Chem 7: 12/25/18 17:20 12/25/18 17:20 Labs: Abnormal Lab Results - Last 24 Hours (Table) 12/25/18 12/25/18 12/25/18 Range/Units 17:20 17:20 19:29 Plt Count 130 L (150-450) k/uL Carbon Dioxide 36 H (22-30) mmol/L Glucose 124 H (74-99) mg/dL POC Glucose (mg/dL) (75-99) mg/dL Total Bilirubin 1.4 H (0.2-1.3) mg/dL Urine Appearance Cloudy H (Clear) Urine Mucus Rare H (None) /hpf 12/25/18 12/25/18 12/25/18 Range/Units 19:44 20:29 21:34 Plt Count (150-450) k/uL Carbon Dioxide (22-30) mmol/L Glucose (74-99) mg/dL POC Glucose (mg/dL) 61 L 73 L 101 H (75-99) mg/dL Total Bilirubin (0.2-1.3) mg/dL Urine Appearance (Clear) Urine Mucus (None) /hpf 12/26/18 12/26/18 12/26/18 Range/Units 03:24 04:40 06:45 Plt Count (150-450) k/uL Carbon Dioxide (22-30) mmol/L Glucose (74-99) mg/dL POC Glucose (mg/dL) 56 L 137 H 159 H (75-99) mg/dL Total Bilirubin (0.2-1.3) mg/dL Urine Appearance (Clear) Urine Mucus (None) /hpf 12/26/18 Range/Units 08:07 Plt Count (150-450) k/uL Carbon Dioxide (22-30) mmol/L Glucose (74-99) mg/dL POC Glucose (mg/dL) 149 H (75-99) mg/dL Total Bilirubin (0.2-1.3) mg/dL Urine Appearance (Clear) Urine Mucus (None) /hpf Thrombosis Risk Factor Assmnt - Choose All That Apply Any of the Below Risk Factors Present?: Yes Each Factor Represents 1 point: Abnormal pulmonary function (COPD), Medical pt on bed rest, Obesity (BMI >25) Other Risk Factors: Yes Each Risk Factor Represents 2 Points: Age 61-74 years Other congenital or acquired thrombophilia - If yes, enter type in comment: No Thrombosis Risk Factor Assessment Total Risk Factor Score: 5 Thrombosis Risk Factor Assessment Level: High Risk Assessment and Plan Assessment: - Fall and weakness need to rule out the cause - Recent pacemaker insertion 2 months ago - Possible gastroenteritis - COPD - CAD - Diabetes mellitus - Hyperlipidemia - Sleep apnea on CPAP - History of thyroid disorder Plan - We'll admit the patient to [facility] with telemetry under observation - We'll monitor for troponin levels and orthostatic blood pressure management. Patient had a recent pacemaker insertion. We'll consult cardiology to make sure there is no proximal the pacemaker the reason for her fall. - Patient is complaining of pain in the right shoulder we'll order for the x- ray. She said that she's been having nausea and dry heaving and a few episodes of vomiting for the past 5 days and she's not been able to eat or drink anything. That could be the cause for her fall if cardiology clears the patient. - We'll resume the patient's home medications at that time - DVT and GI prophylaxis - We'll order for lab work in the morning - Patient is an observation - Patient is full code Time with Patient: Greater than 30
--- NOTE | 2018-12-26 10:44 | XR ---
EXAMINATION TYPE: XR shoulder complete RT DATE OF EXAM: 12/26/2018 CLINICAL HISTORY: pain TECHNIQUE: Three views of the right shoulder are obtained. COMPARISON: None FINDINGS: There is deformity of the right humeral head consistent with the nonacute fracture. There i s a subchondral cystic change. I do not see evidence for acute fracture at this time. Correlate clini lea. AC joint arthropathy and glenohumeral joint space narrowing. IMPRESSION: 1. There is no acute fracture or dislocation. Chronic deformity right humeral head. ICD 10 NO FRACTURE, INITIAL EVALUATION
[2018-12-26 11:01] LABS: Glucose,Whole Blood 215 mg/dL (75-99)
[2018-12-26 17:16] LABS: Glucose,Whole Blood 262 mg/dL (75-99)
[2018-12-26] MEDS: MONTELUKAST 10 MG TAB PO SCH (20:46)
[2018-12-26] MEDS: ATORVASTATIN 10 MG TAB PO SCH (20:46)
[2018-12-26 20:57] LABS: Glucose,Whole Blood 269 mg/dL (75-99)
[2018-12-26 21:11] VITALS: RESP 17
[2018-12-27 02:22] LABS: Glucose,Whole Blood 219 mg/dL (75-99)
[2018-12-27 07:03] LABS: Glucose,Whole Blood 189 mg/dL (75-99)
[2018-12-27] MEDS: IPRATROPIUM 0.5 MG/2.5 ML NEBU INHALATION SCH (07:15)
[2018-12-27] MEDS: BUDESONIDE 0.5 MG/2 ML NEBU INHALATION SCH (07:15)
[2018-12-27] MEDS: METOPROLOL TARTRATE 50 MG TAB PO SCH (07:48)
[2018-12-27] MEDS: ALLOPURINOL 100 MG TAB PO SCH (07:49)
[2018-12-27] MEDS: INSULIN ASPART (NovoLOG) 100 UNIT/ML VIAL SQ SCH ×2 (07:49→12:10)
[2018-12-27] MEDS: FUROSEMIDE 20 MG TAB PO SCH (07:49)
[2018-12-27] MEDS: buPROPion 75 MG TAB PO SCH (07:49)
[2018-12-27] MEDS: PREGABALIN 100 MG CAP PO SCH (07:49)
[2018-12-27] MEDS: LEVOTHYROXINE 125 MCG TAB PO SCH (07:49)
[2018-12-27 11:12] LABS: Glucose,Whole Blood 252 mg/dL (75-99)
[2018-12-27 11:47] VITALS: BP 146/72; PULSE 79; TEMP 97.6
[2018-12-27 12:06] LABS: HCT 35.8 % (34.0-46.0); HGB 11.7 gm/dL (11.4-16.0); Hypochromasia Slight; MCH 29.4 pg (25.0-35.0); MCHC 32.7 g/dL (31.0-37.0); Mean Platelet Volume 7.4; Platelet Count 128 k/uL (150-450); RBC 3.97 m/uL (3.80-5.40); WBC 6.1 k/uL (3.8-10.6)
[2018-12-27 12:25] LABS: Calcium 8.9 mg/dL (8.4-10.2); Potassium 4.3 mmol/L (3.5-5.1)
--- NOTE | 2018-12-27 13:00 | P.CRDCN ---
History of Present Illness Consult date: 12/27/18 Reason for Consult (text): Pacemaker insertion September 2018/recent fall Chief complaint: Pacemaker insertion September 2018/ recent fall History of present illness: HISTORY OF PRESENT ILLNESS AND PLAN: This is a 73-year-old female with history of diabetes type 2, COPD, CAD status post CABG, biologic AV prosthesis, cardiogenic shock, third degree heart block with recent pacemaker insertion September 2018, high cholesterol, low thyroid, Parkinson's, sleep apnea with CPAP use and oxygen dependence. Patient presents to the emergency department with complaints of nausea and vomiting patient states she had some kind of food poisoning or dehydration at home. Patient got up to use the bathroom at night and when returning to bed fell and hit her shoulder on the bed. Patient does not recall losing consciousness. Patient denies any recent fevers. Patient denies any chest pain, chest pressure, palpitations or shortness of breath with the episode. Patient states she had a recent dual chamber pacemaker placed in [address] Pinto. Patient has history of going AMA. Patient advised to go to rehab after pacer insertion, patient refused. Patient lives at home with . Patient follows with Dr. Aguilera in office. Patient had pacemaker interrogation on 09/23/2018 and interrogation WNL. Patient will return to office on January 16 for follow-up appointment and additional interrogation. Most recent echocardiogram May 2018 shows ejection fraction 55% mild LVH, biologic AV prosthesis. Mild MR. Moderate MS. SIGNIFICANT PAST MEDICAL HISTORY: Diabetes type 2, COPD, CAD status post CABG, bioprosthetic AV, cardiogenic shock, third degree heart block with recent pacemaker insertion September 2018, high cholesterol, low thyroid, Parkinson's, sleep apnea with CPAP use and oxygen dependence. PAST SURGICAL HISTORY: See list. EKG shows sinus rhythm, first-degree AV block, heart rate 88 bpm. Troponins negative x 2. SIGNIFICANT LABORATORY VALUES: BMP within normal limits except CO2 elevated at 36, potassium 3.9, magnesium 1.8. CBC within normal limits. Urinary analysis within normal limits. Influenza swab negative. Chest x-ray within normal limits. DX of shoulder within normal limits. Computed tomography scan of head within normal limits. Most recent echo dated = May 2018 indicates EF 55%, mild LVH, biologic AV prosthesis. Mild MR. Moderate MS. Most recent stress testing dated = 2010 indicates dobutamine Cardiolite myocardial perfusion study ejection fraction 60%, within normal limits. No ischemia. Partially reversible inferior basal defect normal contractility. REVIEW OF SYSTEMS: CONSTITUTIONAL: Denies fever. Denies chills. EYES: Denies blurred vision. Denies blurred vision or vision changes. Denies eye pain. EARS, NOSE, MOUTH & THROAT: Denies headache. Denies sore throat. Denies ear pain Denies hemoptysis. CARDIOVASCULAR: Denies chest pain. Denies shortness of breath. Denies orthopnea. Denies PND. Denies palpitations. RESPIRATORY: Denies cough. Denies shortness of breath. GASTROINTESTINAL: Denies abdominal pain or distention. Denies diarrhea. Denies constipation. Denies nausea. Denies vomiting. MUSCULOSKELETAL: Denies myalgias. INTEGUMENTARY: Denies pruitis. Denies rash. ENDOCRINE: Denies fatigue. Denies weight change. Denies polydipsia. Denies polyurina Denies heat/cold intolerance. GENITOURINARY: Denies burning, hematuria or urgency with micturation. HEMATOLOGIC: Denies history of anemia. Denies bleeding. NEUROLOGIC: Denies numbness. Denies tingling. Denies weakness. PSYCHIATRIC: Denies anxiety. Denies depression. PHYSICAL EXAM: VITAL SIGNS: Within normal limits. GENERAL: Well developed, in no acute distress. HEENT: Head is atraumatic, normocephalic. Pupils are equal, round. Extra ocular movements intact. Mucous membranes moist. Neck supple. No JVD. No carotid bruit. No thyromegaly. LUNGS: Clear to auscultation no wheezes, rales or rhonchi. No chest wall tende rness on palpation or with deep breathing. HEART: Regular rate and rhythm, no rubs or gallops. S1 and S2 heard. I/IV murmur. ABDOMEN: Abdominal exam, WNL. Bowel sounds x4 quads. Soft, non-tender, without masses, organomegaly, or abdominal aorta enlargement. EXTREMITIES/VASCULAR: Extremities have easily palpable radial, femoral, dorsalis pedis and posterior tibial pulses. No cyanosis, calf tenderness. No BLE edema. NEUROLOGIC: Patient is awake, alert and oriented x3. No focal neurologic abnor malities. FINAL IMPRESSION: 1. Possible gastroenteritis. 2. Dual chamber pacemaker insertion September 2018, irrigation reveals within normal limits. 3. Biologic AV prosthesis. 4. Status post CABG. 5. Fall. 6. Parkinson's disease PLAN: Continue to monitor blood pressure and hydration status. Orthostatic blood pressure ordered. Echocardiogram ordered. Patient to follow-up in office January 16, 2019 for interrogation. Continue current apical/medication regime. Please call with questions or concerns. Thank you kindly for this consult. Nurse Practitioner note has been reviewed by the Physician. Signing provider agrees with the documented findings, assessment and plan of care. Past Medical History Past Medical History: Asthma, Coronary Artery Disease (CAD), COPD, Diabetes Mellitus, Hyperlipidemia, Pneumonia, Renal Disease, Sleep Apnea/CPAP/BIPAP, Thyroid Disorder Additional Past Medical History / Comment(s): home O2 at 2L, parkinsons, thrombocytopenia, third degree heart block, cardiogenic shock, syncope, biological AV prosthesis History of Any Multi-Drug Resistant Organisms: None Reported Past Surgical History: Cholecystectomy, Coronary Bypass/CABG, Hysterectomy, Joint Replacement Additional Past Surgical History / Comment(s): bilateral knee, pacemaker placement Past Anesthesia/Blood Transfusion Reactions: No Reported Reaction Past Psychological History: Depression Smoking Status: Never smoker Past Alcohol Use History: None Reported Past Drug Use History: None Reported - Past Family History Mother History Unknown: Yes Father History Unknown: Yes Medications and Allergies Home Medications Medication Instructions Recorded Confirmed Type Budesonide [Pulmicort] 0.5 mg INHALATION RT-BID 09/11/18 12/25/18 History Dulaglutide [Trulicity] 0.75 mg SQ TH 09/11/18 12/25/18 History Furosemide [Lasix] 20 mg PO DAILY 09/11/18 12/25/18 History HYDROcodone/APAP 5-325MG [[place] 1 tab PO DAILY PRN 09/11/18 12/25/18 History 5-325] Humulin R U-500 Vial 0.01 units SQ-PUMP CONTINUOUS 09/11/18 12/25/18 History Levothyroxine Sodium [Synthroid] 125 mcg PO DAILY 09/11/18 12/25/18 History Lovastatin [Mevacor] 40 mg PO HS 09/11/18 12/25/18 History Metoprolol Tartrate [Lopressor] 50 mg PO BID 09/11/18 12/25/18 History Montelukast [Singulair] 10 mg PO HS 09/11/18 12/25/18 History Pregabalin [Lyrica] 100 mg PO BID 09/11/18 12/25/18 History Xolair (Unknown Dose) 1 dose SQ Q14D 09/11/18 12/25/18 History buPROPion [Wellbutrin] 75 mg PO DAILY 09/11/18 12/25/18 History Allopurinol [Zyloprim] 100 mg PO DAILY 12/25/18 12/25/18 History Clobetasol Propionate [Temovate 1 applic TOPICAL TID PRN 12/25/18 12/25/18 History 0.05% Cream] Ipratropium Nebulized [Atrovent 0.5 mg INHALATION RT-BID 12/25/18 12/25/18 History Nebulized 0.2 MG/ML] Nystatin [Nystop] 1 applic TOPICAL TID PRN 12/25/18 12/25/18 History Allergies Allergy/AdvReac Type Severity Reaction Status Date / Time codeine Allergy Unknown Verified 12/25/18 18:09 Penicillins Allergy Unknown Verified 12/25/18 18:09 Physical Exam Vitals: Vital Signs Temp Pulse Pulse Pulse Resp BP BP 12/27/18 11:20 97.6 F 79 17 146/72 12/27/18 08:00 85 17 12/27/18 07:31 82 12/27/18 07:15 88 12/27/18 04:45 98 F 80 17 130/61 12/26/18 21:00 98.9 F 85 17 117/56 12/26/18 16:13 74 12/26/18 16:01 72 Pulse Ox 12/27/18 11:20 95 12/27/18 08:00 12/27/18 07:31 12/27/18 07:15 12/27/18 04:45 92 L 12/26/18 21:00 96 12/26/18 16:13 12/26/18 16:01 Intake and Output 12/26/18 12/27/18 12/27/18 22:59 06:59 14:59 Intake Total 480 Balance 480 Intake: Oral 480 Other: Voiding Method Bedside Commode Bedpan # Voids 1 1 Results 12/27/18 11:23 12/27/18 11:23 Cardiac Enzymes 12/26/18 12/26/18 Range/Units 11:01 16:24 Troponin I 0.018 0.015 (0.000-0.034) ng/mL CBC 12/27/18 Range/Units 11:23 WBC 6.1 (3.8-10.6) k/uL RBC 3.97 (3.80-5.40) m/uL Hgb 11.7 (11.4-16.0) gm/dL Hct 35.8 (34.0-46.0) % Plt Count 128 L (150-450) k/uL Current Medications Generic Name Dose Route Start Last Admin Trade Name Freq PRN Reason Stop Dose Admin Hydrocodone Bitart/Acetaminophen 1 each 12/25/18 20:48 [place] 5-325 PO DAILY PRN Severe Pain Albuterol/Ipratropium 3 ml 12/25/18 23:31 12/26/18 16:00 Duoneb 0.5 Mg-3 Mg/3 Ml Soln INHALATION 3 ml RT-Q2H PRN Administration Shortness Of Breath Or Wheezing Allopurinol 100 mg 12/26/18 09:00 12/27/18 07:49 Zyloprim PO 100 mg DAILY SELINA Administration Atorvastatin Calcium 10 mg 12/25/18 21:00 12/26/18 20:46 Lipitor PO 10 mg HS SELINA Administration Budesonide 0.5 mg 12/26/18 08:00 12/27/18 07:15 Pulmicort INHALATION 0.5 mg RT-BID SELINA Administration Bupropion HCl 75 mg 12/26/18 09:00 12/27/18 07:49 Wellbutrin PO 75 mg DAILY SELINA Administration Clobetasol Propionate 1 applic 12/25/18 20:48 Temovate TOPICAL TID PRN Skin Irritation Furosemide 20 mg 12/26/18 09:00 12/27/18 07:49 Lasix PO 20 mg DAILY SELINA Administration Insulin Aspart 0 unit 12/25/18 21:00 12/27/18 07:49 Novolog SQ 3 unit ACHS SELINA Administration Protocol Ipratropium [place] 0.5 mg 12/26/18 08:00 12/27/18 07:15 Atrovent Nebulized INHALATION 0.5 mg RT-BID SELINA Administration Levothyroxine Sodium 125 mcg 12/26/18 06:30 12/27/18 07:49 Synthroid PO 125 mcg DAILY@0630 SELINA Administration Metoprolol Tartrate 50 mg 12/25/18 21:00 12/27/18 07:48 Lopressor PO 50 mg BID SELINA Administration Montelukast Sodium 10 mg 12/25/18 21:00 12/26/18 20:46 Singulair PO 10 mg HS SELINA Administration Naloxone HCl 0.2 mg 12/25/18 20:46 Narcan IV Q2M PRN Opioid Reversal Non-Formulary Medication 0.75 mg 12/26/18 09:00 12/26/18 09:01 Dulaglutide [Trulicity] SQ Not Given [facility] Nystatin 1 applic 12/25/18 20:48 Mycostatin Powder TOPICAL TID PRN Skin Irritation Ondansetron HCl 4 mg 12/25/18 23:31 Zofran IVP Q6HR PRN Nausea And Vomiting Pregabalin 100 mg 12/25/18 21:00 12/27/18 07:49 Lyrica PO 100 mg BID SELINA Administration Intake and Output 12/26/18 12/27/18 12/27/18 22:59 06:59 14:59 Intake Total 480 Balance 480 Intake: Oral 480 Other: Voiding Method Bedside Commode Bedpan # Voids 1 1 12/27/18 11:23 12/25/18 17:20 - EKG Interpretation EKG: sinus rhythm (First-degree AV block)
--- NOTE | 2018-12-27 15:07 | P.DS ---
Providers Date of admission: 12/25/18 20:46 Expected date of discharge: 12/27/18 Attending physician: Dannielle Garrett Consults: 12/26/18 17:36 Consult Physician Routine Consulting Provider: Shan Bronson Consult Reason/Comments: PACER 6 weeks ago, recent falls Do you want consulting provider notified?: Yes Primary care physician: Italia Washington Patient Condition at Discharge: Stable Plan - Discharge Summary Discharge Rx Participant: No New Discharge Prescriptions: New Ipratropium-Albuterol Nebulize [Duoneb 0.5 mg-3 mg/3 ml Soln] 3 ml INHALATION RT-Q2H PRN ampul.neb PRN Reason: Shortness Of Breath Or Wheezing Continue Montelukast [Singulair] 10 mg PO HS Metoprolol Tartrate [Lopressor] 50 mg PO BID Lovastatin [Mevacor] 40 mg PO HS Levothyroxine Sodium [Synthroid] 125 mcg PO DAILY Dulaglutide [Trulicity] 0.75 mg SQ TH buPROPion [Wellbutrin] 75 mg PO DAILY HYDROcodone/APAP 5-325MG [[place] 5-325] 1 tab PO DAILY PRN PRN Reason: Severe Pain Budesonide [Pulmicort] 0.5 mg INHALATION RT-BID Humulin R U-500 Vial 0.01 units SQ-PUMP CONTINUOUS Xolair (Unknown Dose) 1 dose SQ Q14D Pregabalin [Lyrica] 100 mg PO BID Furosemide [Lasix] 20 mg PO DAILY Allopurinol [Zyloprim] 100 mg PO DAILY Clobetasol Propionate [Temovate 0.05% Cream] 1 applic TOPICAL TID PRN PRN Reason: Skin Irritation Nystatin [Nystop] 1 applic TOPICAL TID PRN PRN Reason: Skin Irritation Ipratropium Nebulized [Atrovent Nebulized 0.2 MG/ML] 0.5 mg INHALATION RT-BID Discharge Medication List Budesonide [Pulmicort] 0.5 mg INHALATION RT-BID 09/11/18 [History] Dulaglutide [Trulicity] 0.75 mg SQ TH 09/11/18 [History] Furosemide [Lasix] 20 mg PO DAILY 09/11/18 [History] HYDROcodone/APAP 5-325MG [[place] 5-325] 1 tab PO DAILY PRN 09/11/18 [History] Humulin R U-500 Vial 0.01 units SQ-PUMP CONTINUOUS 09/11/18 [History] Levothyroxine Sodium [Synthroid] 125 mcg PO DAILY 09/11/18 [History] Lovastatin [Mevacor] 40 mg PO HS 09/11/18 [History] Metoprolol Tartrate [Lopressor] 50 mg PO BID 09/11/18 [History] Montelukast [Singulair] 10 mg PO HS 09/11/18 [History] Pregabalin [Lyrica] 100 mg PO BID 09/11/18 [History] Xolair (Unknown Dose) 1 dose SQ Q14D 09/11/18 [History] buPROPion [Wellbutrin] 75 mg PO DAILY 09/11/18 [History] Allopurinol [Zyloprim] 100 mg PO DAILY 12/25/18 [History] Clobetasol Propionate [Temovate 0.05% Cream] 1 applic TOPICAL TID PRN 12/25/18 [History] Ipratropium Nebulized [Atrovent Nebulized 0.2 MG/ML] 0.5 mg INHALATION RT-BID 12/25/18 [History] Nystatin [Nystop] 1 applic TOPICAL TID PRN 12/25/18 [History] Ipratropium-Albuterol Nebulize [Duoneb 0.5 mg-3 mg/3 ml Soln] 3 ml INHALATION RT-Q2H PRN ampul.neb 12/27/18 [Rx] Follow up Appointment(s)/Referral(s): [facility], [NON-STAFF] - 1 Week Italia Washington MD [Primary Care Provider] - 1-2 days Discharge Disposition: HOME WITH HOME HEALTH SERVICES
--- NOTE | 2019-01-06 14:43 | ECHOF ---
Referral Reason:Evaluate LV function and AV MEASUREMENTS -------- HEIGHT: 152.4 cm WEIGHT: 120.2 kg BP: RVIDd: 3.7 cm (< 3.3) IVSd: 1.6 cm (0.6 - 1.1) LVIDd: 4.1 cm (3.9 - 5.3) LVPWd: 1.6 cm (0.6 - 1.1) IVSs: 1.6 cm LVIDs: 3.0 cm LVPWs: 1.9 cm LA Diam: 4.7 cm (2.7 - 3.8) LAESV Index (A-L): 45.46 ml/m Ao Diam: 3.1 cm (2.0 - 3.7) AV maxP.87 mmHg AV meanP.59 mmHg RAP: 5.00 mmHg RVSP: 53.17 mmHg FINDINGS -------- Paced rhythm. This was a technically difficult study with suboptimal views. The left ventricular size is normal. There is moderate concentric left ventricular hypertrophy. O verall left ventricular systolic function is low-normal with, an EF between 50 - 55 %. Apical infer ior LV wall motion is hypokinetic. Apical septum LV wall motion is hypokinetic. The right ventricle is mildly enlarged. LA is severely dilated >40 ml/m2 The right atrium is normal in size. 5 ml of Lumason was utilized for enhancement of images. Atrial septum not visualize Peak/mean gradient across the Aortic Valve is 51.87mmHg / 31.59mmHg. 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 The mitral valve leaflets are severely thickened. Severe mitral annular calcification present. Mi ld mitral regurgitation is present. The peak and mean MV gradients are 34.08mmHg 13.56mmHg as archana ured by doppler. [id number] mitral stenosis. Moderate tricuspid regurgitation present. There is moderate pulmonary hypertension. The right gila tricular systolic pressure, as measured by Doppler, is 53.17mmHg. The pulmonic valve was not well visualized. The aortic root size is normal. IVC Not well visulized. There is no pericardial effusion. CONCLUSIONS -------- 1. Paced rhythm. 2. This was a technically difficult study with suboptimal views. 3. The left ventricular size is normal. 4. There is moderate concentric left ventricular hypertrophy. 5. Overall left ventricular systolic function is low-normal with, an EF between 50 - 55 %. 6. Apical inferior LV wall motion is hypokinetic. 7. Apical septum LV wall motion is hypokinetic. 8. The right ventricle is mildly enlarged. 9. LA is severely dilated >40 ml/m2 10. The right atrium is normal in size. 11. 5 ml of Lumason was utilized for enhancement of images. 12. Atrial septum not visualize 13. Peak/mean gradient across the Aortic Valve is 51.87mmHg / 31.59mmHg. 14. 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 15. Severe mitral annular calcification present. 16. Mild mitral regurgitation is present. 17. The peak and mean MV gradients are 34.08mmHg 13.56mmHg as measured by doppler. 18. Bfguqwiy-[id number] mitral stenosis. 19. Moderate tricuspid regurgitation present. 20. There is moderate pulmonary hypertension. 21. The right ventricular systolic pressure, as measured by Doppler, is 53.17mmHg. 22. The pulmonic valve was not well visualized. 23. The aortic root size is normal. 24. IVC Not well visulized. 25. There is no pericardial effusion. SUPERVISOR DUMPING: YULISSA Morris
== END 2018-12-27 16:40 | disposition home health service (06) ==
LOC: EC 16:37 → 3NMEDONC 20:46
PROVIDERS: ADMIT Internal Medicine; ATTEND Internal Medicine
DX: R53.1 Weakness (principal); E86.0 Dehydration; R11.2 Nausea with vomiting, unspecified; R26.2 Difficulty in walking, not elsewhere classified; J44.9 Chronic obstructive pulmonary disease, unspecified; I25.10 Atherosclerotic heart disease of native coronary artery without angina pectoris; E78.5 Hyperlipidemia, unspecified; E11.649 Type 2 diabetes mellitus with hypoglycemia without coma; G20 Parkinson's disease; N28.9 Disorder of kidney and ureter, unspecified; R62.7 Adult failure to thrive; E07.9 Disorder of thyroid, unspecified; G47.30 Sleep apnea, unspecified; D69.6 Thrombocytopenia, unspecified; F32.9 Major depressive disorder, single episode, unspecified; E66.9 Obesity, unspecified; Z68.43 Body mass index [BMI] 50.0-59.9, adult; Z95.2 Presence of prosthetic heart valve; M25.511 Pain in right shoulder; M21.921 Unspecified acquired deformity of right upper arm; K08.109 Complete loss of teeth, unspecified cause, unspecified class; R47.81 Slurred speech; E78.00 Pure hypercholesterolemia, unspecified; Z79.51 Long term (current) use of inhaled steroids; Z79.890 Hormone replacement therapy; Z79.891 Long term (current) use of opiate analgesic; Z79.899 Other long term (current) drug therapy; Z88.0 Allergy status to penicillin; Z91.81 History of falling; Z88.5 Allergy status to narcotic agent; Z95.0 Presence of cardiac pacemaker; Z95.1 Presence of aortocoronary bypass graft; Z90.710 Acquired absence of both cervix and uterus; Z90.49 Acquired absence of other specified parts of digestive tract; Z86.79 Personal history of other diseases of the circulatory system; Z87.01 Personal history of pneumonia (recurrent); Z96.653 Presence of artificial knee joint, bilateral; W05.0XXA Fall from non-moving wheelchair, initial encounter; Y92.009 Unspecified place in unspecified non-institutional (private) residence as the place of occurrence of the external cause
CPT/HCPCS: 96361 ×3; 96360; 99284; 99285; 36415; 94640 ×3; 93005; 97116; 97110; 97162; 97535 ×2; 97166; 80053; 80048; 82150; 82550; 82553; 83605; 83690; 83735; 84484 ×2; 85025; 85027; 81001; 87502; 73030; 71046; 70450; G0378 ×3; C8929; Q9950; 93306